=== PATIENT | male | born 1940 | race Caucasian/White ===

== ENCOUNTER 2019-09-02 07:25 | Outpatient (CLI) | payer MEDICARE, SELFPAY ==
--- NOTE | ~2019-09-02 | US_ITS ---
US venous doppler UE LT DATE: 09/02/2019 07:58 INDICATION: Left arm swelling. History of metastatic lung cancer. TECHNIQUE: Real-time imaging and color flow imaging and Doppler analysis of the veins of the left upp er extremity COMPARISON: None FINDINGS: Flow is demonstrated in the left internal jugular and subclavian veins. There is extensive thrombus within the left basilic vein with incomplete compression of this vessel. The left brachial, cephalic, radial and ulnar veins are patent. IMPRESSION: Deep venous thrombosis of left basilic vein Dr. Woodruff telephoned the report on 09/02/2019 at 0809 hours to [place] Reviewed, dictated and finalized at Location A. Reviewed, dictated and finalized at location A. COUPLER
== END 2019-09-02 07:26 | disposition home or self-care (01) ==
PROVIDERS: PCP Internal Medicine; Visit Provider Internal Medicine
DX: M79.89 Other specified soft tissue disorders (principal); C34.90 Malignant neoplasm of unspecified part of unspecified bronchus or lung
CPT/HCPCS: 93971

== ENCOUNTER 2019-09-04 08:40 | Outpatient (CLI) | payer MEDICARE, SELFPAY ==
[2019-09-04 08:54] LABS: Basophils Absolute Auto 0.05 K/mm3 (0.00-0.10); Basophils Percent Auto 0.7 % (0.0-1.0); Eosinophils Absolute Auto 0.34 K/mm3 (0.02-0.50); Eosinophils Percent Auto 5.1 % (1.0-6.0); Hemoglobin 7.5 g/dL (12.4-15.3); Immature Granulocyte Absolute 0.04 K/mm3 (0.00-0.00); Immature Granulocyte Percent A 0.6 % (0.0-0.0); Lymphocytes Percent Auto 13.5 % (18.0-42.0); Mean Corpuscular Volume 86.8 fL (78.0-102.0); Mean Platelet Volume 8.7 fl (8.7-11.0); Monocytes Absolute Auto 0.64 K/mm3 (0.10-0.90); Monocytes Percent Auto 9.6 % (2.0-11.0); Neutrophils Absolute Auto 4.7 K/mm3 (1.7-7.2); Neutrophils Percent Auto 70.5 % (50.0-70.0); Platelet Count Result 306 K/mm3 (150-420); Red Blood Count 2.88 M/mm3 (4.70-6.10); White Blood Count 6.7 K/mm3 (4.8-10.8)
[2019-09-04 09:57] LABS: Alanine Aminotransferase 12 U/L (16-63); Albumin Level 3.1 g/dL (3.4-5.0); Alkaline Phosphatase 87 U/L (46-116); Anion Gap 14.9 mmol/L (7-16); Aspartate Amino Transferase 12 U/L (15-37); Bilirubin,Total 0.3 mg/dL (0.00-1.00); Blood Urea Nitrogen 45 mg/dL (7-18); Calcium 9.2 mg/dL (8.5-10.1); Carbon Dioxide 26 mmol/L (21-32); Chloride 106 mmol/L (98-108); Estimated Glomerular Filt Rate 22; Glucose 94 mg/dL (70-99); Osmolality Calculated 305 mOsm/kg (285-295); Potassium 4.9 mmol/L (3.5-5.1); Sodium 142 mmol/L (136-145); Total Protein 6.3 g/dL (6.4-8.2)
== END 2019-09-04 08:41 | disposition home or self-care (01) ==
LOC: CHSLAB 08:45
PROVIDERS: PCP Internal Medicine; Visit Provider Internal Medicine
DX: N18.9 Chronic kidney disease, unspecified (principal); I80.9 Phlebitis and thrombophlebitis of unspecified site
CPT/HCPCS: 36415; 80053; 85025

== ENCOUNTER 2019-09-11 12:11 | Outpatient (CLI) | payer MEDICARE, SELFPAY ==
[2019-09-11 13:07] LABS: Basophils Absolute Auto 0.04 K/mm3 (0.00-0.10); Basophils Percent Auto 0.6 % (0.0-1.0); Eosinophils Absolute Auto 0.36 K/mm3 (0.02-0.50); Eosinophils Percent Auto 5.1 % (1.0-6.0); Hematocrit 24.9 % (37.0-46.0); Hemoglobin 7.4 g/dL (12.4-15.3); Immature Granulocyte Absolute 0.07 K/mm3 (0.00-0.00); Lymphocytes Absolute Auto 0.86 K/mm3 (1.10-4.50); Lymphocytes Percent Auto 12.2 % (18.0-42.0); Mean Corpuscular HGB Conc 29.7 g/dL (32.0-36.0); Mean Corpuscular Hemoglobin 25.4 pg (27.0-31.0); Mean Corpuscular Volume 85.6 fL (78.0-102.0); Monocytes Absolute Auto 0.75 K/mm3 (0.10-0.90); Monocytes Percent Auto 10.7 % (2.0-11.0); Neutrophils Percent Auto 70.4 % (50.0-70.0); Platelet Count Result 341 K/mm3 (150-420); Red Blood Count 2.91 M/mm3 (4.70-6.10); Red Cell Distribution Width 14.5 % (11.6-14.4)
[2019-09-11 13:42] LABS: Alanine Aminotransferase 15 U/L (16-63); Albumin Level 3.1 g/dL (3.4-5.0); Alkaline Phosphatase 87 U/L (46-116); Anion Gap 15.4 mmol/L (7-16); Aspartate Amino Transferase 13 U/L (15-37); Bilirubin,Total 0.2 mg/dL (0.00-1.00); Blood Urea Nitrogen 39 mg/dL (7-18); Calcium 8.8 mg/dL (8.5-10.1); Carbon Dioxide 28 mmol/L (21-32); Chloride 105 mmol/L (98-108); Estimated Glomerular Filt Rate 26; Glucose 82 mg/dL (70-99); Osmolality Calculated 306 mOsm/kg (285-295); Potassium 4.4 mmol/L (3.5-5.1); Sodium 144 mmol/L (136-145); Total Protein 6.4 g/dL (6.4-8.2)
== END 2019-09-11 12:12 | disposition home or self-care (01) ==
LOC: CHSLAB 12:13
PROVIDERS: PCP Internal Medicine; Visit Provider Internal Medicine
DX: N18.9 Chronic kidney disease, unspecified (principal); I80.9 Phlebitis and thrombophlebitis of unspecified site
CPT/HCPCS: 36415; 80053; 85025

== ENCOUNTER 2020-03-21 09:12 | Outpatient (CLI) | payer MEDICARE, SELFPAY ==
[2020-03-21 09:20] VITALS: PULSE 72; O2SAT 96
[2020-03-21 09:41] VITALS: PULSE 91; O2SAT 87
[2020-03-21 09:43] VITALS: PULSE 104; O2SAT 98
--- NOTE | 2020-03-21 09:46 | HOMEO2EVAL ---
Home Oxygen Evaluation RC: Home Oxygen (O2) Evaluation Start: 03/21/20 09:39 Freq: Status: Active Protocol: RPE Activity Type Activity Date Activity User E-Sign Co-Sign Detail Recorded Client Recorded Date Recorded By Document 03/21/20 09:20 MAGALI [id number] 03/21/20 09:46 SJB Document 03/21/20 09:41 SJB [id number] 03/21/20 09:46 SJB Document 03/21/20 09:43 SJB [id number] 03/21/20 09:46 SJB 03/21/20 03/21/20 03/21/20 09:20 09:41 09:43 Home O2 Evaluation Test Phase Resting Exercise Exercise Oxygen Delivery Room Air Nasal Cannula Oxygen Flow Rate (L/min) 2 Pulse Oximetry (90-100 %) 96 87 L 98 Pulse Rate (60-100 beats/min) 72 91 104 H Activity Tolerance Fair Fair Rating of Perceived Dyspnea (PD) +2 Mild, Some +3 Moderate Difficulty, Difficulty, But Noticeable to Can Continue the Observer Ambulation Distance (feet) 265 530 Home Oxygen Evaluation Comments WAKED APPROX PT WALKED THE 265 FT PUSHING REMAINDER OF W/C O R/A. THE 530 FT ON 2 SP02 DROPPED TO LPM O2 87%, 2 LPM O2 TOLERATING WELL WAS STARTED AT WITH SP02S THIS TIME. REST FROM 96-98%. TIME WAS APPROX [address] ENCOURAGED. Treatment Charges O2 Evaluation
== END 2020-03-21 09:13 | disposition home or self-care (01) ==
LOC: CHSCARD 09:14
PROVIDERS: PCP Internal Medicine; Visit Provider Internal Medicine
DX: J44.9 Chronic obstructive pulmonary disease, unspecified (principal); Z99.81 Dependence on supplemental oxygen
CPT/HCPCS: 94618

== ENCOUNTER 2020-06-13 13:41 | Outpatient (CLI) | payer MEDICARE, SELFPAY ==
--- NOTE | ~2020-06-13 | XR_ITS ---
EXAMINATION: XR chest 2V DATE: 06/13/2020 14:02 INDICATION: Dyspnea. Chronic obstructive pulmonary disease. TECHNIQUE: Frontal and lateral views of the chest were obtained on 3 radiographs. COMPARISON: Chest single view 04/20/2019, chest CT 04/13/2019 FINDINGS: The lungs are hyperexpanded with lucencies, consistent with emphysema. There are nodules in left upper lobe. No pleural effusion or pneumothorax. The heart size is normal. IMPRESSION: 1. Nodules in left upper lobe, consistent with infection versus metastatic disease. 2. Emphysema. Reviewed, dictated and finalized at location B. ER MAKING LABORER IMPRESSION: 1. Nodules in left upper lobe, consistent with infection versus metastatic dise ase. 2. Emphysema.
== END 2020-06-13 13:42 | disposition home or self-care (01) ==
LOC: CHSIMG 13:44
PROVIDERS: PCP Internal Medicine; Visit Provider Internal Medicine Pulmonary Disease
DX: J44.9 Chronic obstructive pulmonary disease, unspecified (principal); R06.00 Dyspnea, unspecified
CPT/HCPCS: 71046

== ENCOUNTER 2020-06-25 03:57 | Observation (INO) | payer MEDICARE, SELFPAY ==
[2020-06-25] VITALS (22 sets, daily range): BP systolic 123–165; BP diastolic 50–88; PULSE 76–100; RESP 18–28; TEMP 36.6–37.1; O2SAT 92–99; BMI 28.8; BMI 28.7
--- NOTE | ~2020-06-25 | XR_ITS ---
EXAMINATION: XR chest 1V portable EXAM DATE: 06/25/2020 04:31 INDICATION: Dyspnea. TECHNIQUE: Portable AP frontal chest x-ray was obtained. Comparison is made to prior examination from 06/13/2020. FINDINGS: Again there is reticular nodular left upper lobe airspace disease with some regions of calc ification. Could be postinfectious scarring. Underlying malignancy not excludable. Right lung is cali r. No pneumothorax or pleural effusion. Cardiomediastinal silhouette is normal. There are no osseous abnormalities identified. IMPRESSION: 1. Left upper lobe opacities most likely postinfectious. Can't exclude underlying malignancy. 2. No acute findings. Reviewed, dictated and finalized at location A. STIGATION OFFICER IMPRESSION: 1. Left upper lobe opacities most likely postinfectious. Can't exclude underly ing malignancy. 2. No acute findings.
--- NOTE | 2020-06-25 04:10 | ECG_ITS ---
Measurements Intervals [place] Rate: 93 P: 73 DC: 172 QRS: 78 QRSD: 94 T: 68 QT: 370 QTc: 461 Interpretive Statements SINUS RHYTHM VENTRICULAR COUPLET AND VENTRICULAR PREMATURE COMPLEX BASELINE ARTIFACT- I, III, AVR, AVL, AVF, V1-V6 BORDERLINE ECG Electronically Signed On 06-26-2020 7:31:19 COKE WORKER by Jerome Leahy D.O.
[2020-06-25] MEDS: SODIUM CHLORIDE 0.9% 3 ML NEB FOR INHALATION (04:11)
[2020-06-25] MEDS: IPRATROPIUM 0.5 MG/ALBUTEROL SULFATE 2.5 MG AMPUL.NEB 3 ML (04:11)
[2020-06-25 04:54] LABS: Basophils Absolute Auto 0.06 K/mm3 (0.00-0.10); Basophils Percent Auto 0.5 % (0.0-1.0); Eosinophils Absolute Auto 0.29 K/mm3 (0.02-0.50); Eosinophils Percent Auto 2.6 % (1.0-6.0); Hematocrit 33.2 % (37.0-46.0); Hemoglobin 9.8 g/dL (12.4-15.3); Immature Granulocyte Absolute 0.26 K/mm3 (0.00-0.00); Immature Granulocyte Percent A 2.3 % (0.0-0.0); Lymphocytes Absolute Auto 1.54 K/mm3 (1.10-4.50); Lymphocytes Percent Auto 13.9 % (18.0-42.0); Mean Corpuscular HGB Conc 29.5 g/dL (32.0-36.0); Mean Corpuscular Hemoglobin 27.9 pg (27.0-31.0); Mean Corpuscular Volume 94.6 fL (78.0-102.0); Mean Platelet Volume 10.6 fl (8.7-11.0); Monocytes Absolute Auto 0.81 K/mm3 (0.10-0.90); Monocytes Percent Auto 7.3 % (2.0-11.0); Neutrophils Absolute Auto 8.1 K/mm3 (1.7-7.2); Neutrophils Percent Auto 73.4 % (50.0-70.0); Platelet Count Result 232 K/mm3 (150-420); Red Blood Count 3.51 M/mm3 (4.70-6.10); Red Cell Distribution Width 14.6 % (11.6-14.4); White Blood Count 11.1 K/mm3 (4.8-10.8)
[2020-06-25 05:08] LABS: Base Excess ABG -2.2 mmol/L (0-2); HCO3 ABG 26.2 mmol/L (23-29); Modified Allen's Test Pass; Oxygen Content ABG 20.5 %vol (16.0-22.0); Oxygen Saturation ABG 92.6 % (95-97); Oxyhemoglobin 91.6 % (94-100); PCO2 ABG 59.7 mmHg (35-45); PO2 ABG 67.2 mmHg (75-85); Site Drawn LEFT RADIAL; Total Hemoglobin 15.9 g/dL; pH ABG 7.26 (7.35-7.45)
[2020-06-25 05:09] LABS: D Dimer 0.29 mg/L (0.19-0.50); Device NASAL CANNULA; Partial Thromboplastin Time 30.1 SEC (22.3-31.6); Prothrombin Time 10.2 Seconds (9.64-11.0)
[2020-06-25 05:10] LABS: Alanine Aminotransferase 24 U/L (16-63); Albumin Level 3.4 g/dL (3.4-5.0); Alkaline Phosphatase 84 U/L (46-116); Anion Gap 10 mmol/L (8-16); Aspartate Amino Transferase 13 U/L (15-37); Bilirubin,Total 0.2 mg/dL (0.00-1.00); Blood Urea Nitrogen 40 mg/dL (7-18); Calcium 8.4 mg/dL (8.5-10.1); Carbon Dioxide 25 mmol/L (21-32); Chloride 111 mmol/L (98-108); Estimated CRCL calculation 28 ml/min; Estimated Glomerular Filt Rate 29; Glucose 112 mg/dL (70-99); Magnesium 2.3 mg/dL (1.8-2.4); Osmolality Calculated 312 mOsm/kg (285-295); Potassium 4.2 mmol/L (3.5-5.1); Sodium 146 mmol/L (136-145); Total Protein 6.5 g/dL (6.4-8.2); Troponin I < 0.02 ng/mL (0.00-0.056)
[2020-06-25 05:11] LABS: Magnesium 2.3 mg/dL (1.8-2.4)
[2020-06-25 05:12] LABS: Lactic Acid Reflex 0.8 mmol/L (0.4-2.0)
[2020-06-25 05:13] LABS: Influenza Control Valid (Valid); SARS-CoV-2 Ag Negative (Negative)
[2020-06-25 05:15] LABS: BNP 33.3 pg/mL (0-100)
--- NOTE | 2020-06-25 05:51 | ED.SOB ---
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 Has not had a left upper extremity DVT currently on Eliquis. Patient developed increasing shortness of breath overnight with audible wheezing with no fever chills no chest pain denied any abdominal pain no dysuria no diarrhea constipation. MD elicited complaint: shortness of breath Pertinent past history: COPD Onset (ago): hour(s) Context: anxiety Timing: constant Severity: moderate Relieving factors: oxygen Known history of: COPD Associated symptoms: wheezing Treatment prior to arrival: oxygen and other ( Steroids) Related Data Home Medications Medication Instructions Recorded Confirmed apixaban [Eliquis] 5 mg PO DAILY 06/25/20 06/25/20 budesonide [Pulmicort] See Rx Instructions .ROUTE .COMPLEX 06/25/20 06/25/20 [id number] See Rx Instructions .ROUTE .COMPLEX 06/25/20 06/25/20 [Trelegy Ellipta] furosemide [Lasix] See Rx Instructions .ROUTE .COMPLEX 06/25/20 06/25/20 lisinopril [Zestril] See Rx Instructions .ROUTE .COMPLEX 06/25/20 06/25/20 prednisone See Rx Instructions .ROUTE .COMPLEX 06/25/20 06/25/20 Allergies Allergy/AdvReac Type Severity Reaction Status Date / Time No Known Allergies Allergy Unverified 12/17/19 07:29 Review of Systems Review of Systems: All systems reviewed & are unremarkable except as noted in HPI and below PMFSH Past Medical History Medical History COPD (chronic obstructive pulmonary disease) HTN (hypertension) Social History Social History Gender identity (if verbalized by the patient): Male Exam Const: General: no acute distress and alert Orientation/consciousness: patient oriented x3 HENMT: Head: normal to inspection Eyes: Conjunctivae: conjunctivae normal Pupils: Equal, round and reactive pupils present Neck: Neck: normal visual inspection Chest: Chest palpation & inspection: normal inspection of the chest and abnormal inspection of the chest Resp: Effort & Inspection: tachypneic Auscultation: wheezes and diminished lung sounds Cardio: Rate: regular rate Rhythm: regular rhythm GI: GI Palp: Yes Soft to palpation Auscultation: normal bowel sounds Other: right lower abdomen with an ostomy back Urinary Catheter: Urinary Catheter: patent and draining Back/Spine/Pelvis: Back: no CVA tenderness Skin: General skin exam: normal color Rashes: no rashes Neuro: General: patient oriented x3, moves all extremities, no meningeal signs and no focal motor deficits Extrem: General: edema Psych: Mental Status: mental status grossly normal Course Course Emergency Course: reassess of patient had improvement with some nebulizer treatment and had received Solu-Medrol during EMS transfer. Spoke to patient and son about admission for COPD exacerbation. Vital Signs Vital signs: Vital Signs Pulse Rate 99 06/25/20 03:59 Respiratory Rate 22 H 06/25/20 03:59 Pulse Oximetry 96 06/25/20 03:59 Temperature 36.8 C 06/25/20 04:09 Pulse Rate 91 06/25/20 05:13 Respiratory Rate 21 H 06/25/20 05:13 Blood Pressure 136/70 06/25/20 05:13 Pulse Oximetry 92 06/25/20 05:13 MDM - SOB/Dyspnea Lab Data Result diagrams: 06/25/20 04:47 06/25/20 04:47 Labs: Lab Results 06/25/20 06/25/20 06/25/20 Range/Units 04:47 04:47 04:47 WBC 11.1 H (4.8-10.8) K/mm3 RBC 3.51 L (4.70-6.10) M/mm3 Hgb 9.8 L (12.4-15.3) g/dL Hct 33.2 L (37.0-46.0) % MC
--- NOTE | 2020-06-25 06:14 | PM.IMHP ---
H&P: HPI History of Present Illness Date/Time: 06/25/20 06:14 Chief complaint: Shortness of Breath Narrative: Merrill Hill is a 79 year old male presents with some dyspnea and audible wheezing has a history of COPD and is on home O2 at2L. Presents the emergency department via EMS after he called having increased shortness of breath with no fever chills, is no chest pain, no cough does have audible wheezing and history of COPD the patient denies a smoking but has apparently quit smoking approximately 10 years ago according to patient. Patient has a history of COPD, hypertension, has a history of bladder cancer with surgery and ostomy bag the right lower abdomen. Patient also had a left upper extremity DVT and is currently on Eliquis. Patient denies fever or chills currently afebrile, with no chest pain. The patient while in the emergency department received nebulizer treatment and IV steroids and is currently on 3L of oxygen satting 92% and currently resting comfortably. Review of Systems Review of Systems: All systems reviewed & are unremarkable except as noted in HPI and below PMFSH Past Medical History Medical History COPD (chronic obstructive pulmonary disease) HTN (hypertension) Social History Social History Gender identity (if verbalized by the patient): Male Meds Home Medications and Allergies Home Medications Medication Instructions Recorded Confirmed Type apixaban [Eliquis] 5 mg PO DAILY 06/25/20 06/25/20 History budesonide [Pulmicort] See Rx Instructions .ROUTE .COMPLEX 06/25/20 06/25/20 History [id number] See Rx Instructions .ROUTE .COMPLEX 06/25/20 06/25/20 History [Trelegy Ellipta] furosemide [Lasix] See Rx Instructions .ROUTE .COMPLEX 06/25/20 06/25/20 History lisinopril [Zestril] See Rx Instructions .ROUTE .COMPLEX 06/25/20 06/25/20 History prednisone See Rx Instructions .ROUTE .COMPLEX 06/25/20 06/25/20 History Allergies Allergy/AdvReac Type Severity Reaction Status Date / Time No Known Allergies Allergy Unverified 12/17/19 07:29 Vital Signs Vital Signs - 24 hr 06/25/20 03:59 06/25/20 04:09 06/25/20 04:12 Temperature 36.8 C Pulse Rate 99 96 92 Respiratory Rate 22 H 28 H 22 H Blood Pressure 151/88 H Pulse Oximetry 96 94 95 06/25/20 04:49 06/25/20 05:13 06/25/20 06:10 Temperature 37.1 C Pulse Rate 92 91 95 Respiratory Rate 22 H 21 H 20 Blood Pressure 165/87 H 136/70 152/78 H Pulse Oximetry 92 92 95 Exam Const: General: cooperative, comfortable, well developed, alert and awake Orientation/consciousness: oriented to person Limitations: no limitations HENMT: Head: normal to inspection Face and sinus: normal facial exam Eyes: General: appearance normal, both eyes and all related structures Eyelids: eyelids normal Conjunctivae: conjunctivae normal Sclera: sclerae normal Neck: Neck: normal visual inspection, full ROM, no lymphadenopathy and no meningeal signs Chest: Chest palpation & inspection: normal inspection of the chest and normal palpation of entire chest wall Resp: Effort & Inspection: normal respiratory effort, able to speak in complete sentences and decreased respiratory effort Cardio: Jugular venous distension: no JVD Palpation: normal PMI Rate: regular rate Rhythm: regular rhythm Back/Spine/Pelvis: Cervical Spine: normal cervical lordosis and cervical ROM normal Thoracic/Lumbar Spine: thoracic and lumbar spine normal to inspection Skin: General skin exam: normal color and no rashes or lesions noted Neuro: General: oriented to person, oriented to place, oriented to time, patient oriented x3 and moves all extremities Extrem: General: full ROM, capillary refill normal and edema Psych: Appearance: grossly normal and well kempt Mental Status: mental status grossly normal H&P: Results Labs Labs: Short CBC
[2020-06-25] MEDS: ALBUTEROL SULFATE NEB 1.25 MG/3 ML INH INHALATION (06:55)
--- NOTE | 2020-06-25 07:16 | ADMGEN ---
This patient, Merrill Hill, was admitted to 2nd Floor Room 208-2. Patient oriented to hospital policies and general routines including ID bracelet, bed and alarms, visiting hours, pain management, procedures, bathroom and other care routines, personal items, smoking policy, room service/diet, and visiting hours. Information on how to activate the Rapid Response Team has been discussed. Patient are encouraged to report perceived risks to care and to ask questions if they do not understand what they are told or what they should do. Patient emptied his urostomy into barrera catheter while sitting on ER stretcher. 200 clear yellow.
[2020-06-25] MEDS: SODIUM CHLORIDE 0.9% IV 1,000 ML 100 ML IV CONT ×2 (08:26→17:37)
[2020-06-25] MEDS: APIXABAN 2.5 MG TABLET 5 MG PO (08:27)
[2020-06-25] MEDS: methylPREDNISolone SOD SUCC 40 MG VIAL IV PUSH ×4 (08:27→23:33)
[2020-06-25] MEDS: FUROSEMIDE 40 MG TABLET PO (08:45)
[2020-06-25] MEDS: lisinopriL 5 MG TABLET PO (08:45)
[2020-06-25] MEDS: IPRATROPIUM 0.5 MG/ALBUTEROL SULFATE 2.5 MG AMPUL.NEB 3 ML INHALATION ×3 (11:55→23:34)
[2020-06-26] VITALS (7 sets, daily range): BP systolic 136; BP diastolic 51; PULSE 65–94; RESP 20; TEMP 36.6; O2SAT 94–99
[2020-06-26] MEDS: SODIUM CHLORIDE 0.9% IV 1,000 ML 100 ML IV CONT (03:10)
[2020-06-26] MEDS: IPRATROPIUM 0.5 MG/ALBUTEROL SULFATE 2.5 MG AMPUL.NEB 3 ML INHALATION ×2 (05:34→12:22)
[2020-06-26] MEDS: methylPREDNISolone SOD SUCC 40 MG VIAL IV PUSH (05:53)
[2020-06-26 06:18] LABS: Basophils Absolute Auto 0.01 K/mm3 (0.00-0.10); Basophils Percent Auto 0.1 % (0.0-1.0); Hematocrit 28.9 % (37.0-46.0); Hemoglobin 8.7 g/dL (12.4-15.3); Immature Granulocyte Absolute 0.17 K/mm3 (0.00-0.00); Immature Granulocyte Percent A 1.5 % (0.0-0.0); Lymphocytes Percent Auto 3.6 % (18.0-42.0); Mean Corpuscular HGB Conc 30.1 g/dL (32.0-36.0); Mean Corpuscular Hemoglobin 28.1 pg (27.0-31.0); Mean Corpuscular Volume 93.2 fL (78.0-102.0); Mean Platelet Volume 10.2 fl (8.7-11.0); Monocytes Absolute Auto 0.47 K/mm3 (0.10-0.90); Monocytes Percent Auto 4.2 % (2.0-11.0); Neutrophils Absolute Auto 10.1 K/mm3 (1.7-7.2); Neutrophils Percent Auto 90.6 % (50.0-70.0); Platelet Count Result 202 K/mm3 (150-420); Red Cell Distribution Width 14.6 % (11.6-14.4); White Blood Count 11.1 K/mm3 (4.8-10.8)
[2020-06-26 06:32] LABS: Alanine Aminotransferase 19 U/L (16-63); Alkaline Phosphatase 69 U/L (46-116); Anion Gap 7 mmol/L (8-16); Aspartate Amino Transferase 11 U/L (15-37); Bilirubin,Total 0.1 mg/dL (0.00-1.00); Blood Urea Nitrogen 46 mg/dL (7-18); Calcium 7.9 mg/dL (8.5-10.1); Carbon Dioxide 26 mmol/L (21-32); Chloride 110 mmol/L (98-108); Estimated CRCL calculation 28 ml/min; Estimated Glomerular Filt Rate 29; Glucose 146 mg/dL (70-99); Osmolality Calculated 310 mOsm/kg (285-295); Potassium 4.9 mmol/L (3.5-5.1); Sodium 143 mmol/L (136-145); Total Protein 5.9 g/dL (6.4-8.2)
[2020-06-26 06:39] LABS: BNP 92.7 pg/mL (0-100)
--- NOTE | 2020-06-26 08:24 | PM.IMHP ---
H&P: HPI History of Present Illness Date/Time: 06/26/20 08:24 Chief complaint: COPD EXACERBATION Narrative: Merrill Hill is a 79 year old male [facility] Past Medical History Medical History (Updated 06/25/20 @ 06:19 by Ermias Martines MD) Acute exacerbation of chronic obstructive airways disease COPD (chronic obstructive pulmonary disease) H/O deep venous thrombosis HTN (hypertension) Social History Social History Smoking status: Former smoker Tobacco type: cigarettes Second hand tobacco smoke exposure: No Alcohol intake: never Substance use: never Substance use type: does not use Gender identity (if verbalized by the patient): Male Sexual Orientation (if Verbalized by the Patient): Straight or Heterosexual Spiritual care concerns: No Meds Home Medications and Allergies Home Medications Medication Instructions Recorded Confirmed Type apixaban [Eliquis] 5 mg PO DAILY 06/25/20 06/25/20 History budesonide [Pulmicort] See Rx Instructions .ROUTE .COMPLEX 06/25/20 06/25/20 History [id number] See Rx Instructions .ROUTE .COMPLEX 06/25/20 06/25/20 History [Trelegy Ellipta] furosemide [Lasix] See Rx Instructions .ROUTE .COMPLEX 06/25/20 06/25/20 History lisinopril [Zestril] See Rx Instructions .ROUTE .COMPLEX 06/25/20 06/25/20 History prednisone See Rx Instructions .ROUTE .COMPLEX 06/25/20 06/25/20 History Allergies Allergy/AdvReac Type Severity Reaction Status Date / Time No Known Allergies Allergy Unverified 12/17/19 07:29 Vital Signs Vital Signs - 24 hr 06/25/20 11:59 06/25/20 12:00 06/25/20 12:12 Temperature Pulse Rate 87 88 88 Respiratory Rate 20 20 Blood Pressure Pulse Oximetry 99 98 06/25/20 15:30 06/25/20 15:32 06/25/20 15:35 Temperature 98.1 F Pulse Rate 88 88 Respiratory Rate 18 Blood Pressure 132/70 Pulse Oximetry 97 98 06/25/20 17:58 06/25/20 20:00 06/25/20 23:30 Temperature Pulse Rate 80 84 76 Respiratory Rate 18 20 Blood Pressure Pulse Oximetry 97 95 06/25/20 23:47 06/25/20 23:50 06/26/20 03:45 Temperature 97.8 F Pulse Rate 76 82 80 Respiratory Rate 20 20 Blood Pressure 123/50 L Pulse Oximetry 95 95 06/26/20 05:35 06/26/20 05:45 Temperature Pulse Rate 66 65 Respiratory Rate 20 20 Blood Pressure Pulse Oximetry 94 96 H&P: Results Labs Labs: Short CBC 06/26/20 Range/Units 06:12 WBC 11.1 H (4.8-10.8) K/mm3 Hgb 8.7 L (12.4-15.3) g/dL Hct 28.9 L (37.0-46.0) % Plt Count 202 (150-420) K/mm3 BMP 06/26/20 06:12 Sodium 143 Potassium 4.9 Chloride 110 H Carbon Dioxide 26 BUN 46 H Creatinine 2.18 H Glucose 146 H Calcium 7.9 L Liver Function 06/26/20 Range/Units 06:12 Total Bilirubin 0.1 (0.00-1.00) mg/dL AST 11 L (15-37) U/L ALT 19 (16-63) U/L Alkaline Phosphatase 69 (46-116) U/L Albumin 3.0 L (3.4-5.0) g/dL
[2020-06-26] MEDS: lisinopriL 5 MG TABLET PO (09:08)
[2020-06-26] MEDS: FUROSEMIDE 40 MG TABLET PO (09:09)
[2020-06-26] MEDS: APIXABAN 2.5 MG TABLET 5 MG PO (09:09)
--- NOTE | 2020-06-26 11:00 | PM.SD ---
Same Day Admit/Disch: HPI History of Present Illness Chief complaint: COPD EXACERBATION <JEFF Raymundo - Last Filed: 06/26/20 11:25> Narrative: Merrill Hill is a 79 year old male who came into the hospital via EMS due to increased shortness of breath. Patient states he has a history of lung cancer and is receiving chemotherapy every 3 weeks. States he is on home oxygen and has nebulizers that he has been using. He admits that he has recently had increased cravings for cigarettes and would like Chantix on discharge. Patient denies fevers, chills, chest pain, coughing. This morning patient states he feels that he is back to his normal baseline for when he is at home. He informed me that he does have a steroid taper pack at home that he did not use for some reason. Will be sending him home with Z-Andi and a prednisone taper pack. Patient will need to have close follow-up with his primary care provider and/or his oncologist. Will also send a script for Chantix. <JEFF Raymundo - Last Filed: 06/26/20 11:25> [facility] Past Medical History Medical History: Medical History Acute exacerbation of chronic obstructive airways disease COPD (chronic obstructive pulmonary disease) H/O deep venous thrombosis HTN (hypertension) <JEFF Raymundo - Last Filed: 06/26/20 11:25> Social History Social History: Social History Smoking status: Former smoker Tobacco type: cigarettes Second hand tobacco smoke exposure: No Alcohol intake: never Substance use: never Substance use type: does not use Gender identity (if verbalized by the patient): Male Sexual Orientation (if Verbalized by the Patient): Straight or Heterosexual Spiritual care concerns: No <JEFF Raymundo - Last Filed: 06/26/20 11:25> Same Day Admit/Disch: Med Pre-admit Medications Home Medications: Home Medications Medication Instructions Recorded Confirmed Type Eliquis 5 mg PO DAILY 06/25/20 06/25/20 History Trelegy Ellipta See Rx Instructions .ROUTE .COMPLEX 06/25/20 06/25/20 History budesonide [Pulmicort] See Rx Instructions .ROUTE .COMPLEX 06/25/20 06/25/20 History furosemide [Lasix] See Rx Instructions .ROUTE .COMPLEX 06/25/20 06/25/20 History lisinopril [Zestril] See Rx Instructions .ROUTE .COMPLEX 06/25/20 06/25/20 History prednisone See Rx Instructions .ROUTE .COMPLEX 06/25/20 06/25/20 History azithromycin 250 mg PO DAILY 5 Days #5 tablet 06/26/20 Rx prednisone See Rx Instructions .ROUTE 06/26/20 Rx .COMPLEX #48 ea varenicline [Chantix Starting See Rx Instructions .ROUTE 06/26/20 Rx Month Box] .COMPLEX #53 ea <JEFF Raymundo - Last Filed: 06/26/20 11:25> Exam Const: General: cooperative, comfortable, no acute distress, alert, awake and Physically active <JEFF Raymundo - Last Filed: 06/26/20 11:25> Nutritional Appearance: average body habitus <JEFF Raymundo - Last Filed: 06/26/20 11:25> Resp: Effort & Inspection: labored (Appears a little labored, patient says this is his normal at home) <JEFF Raymundo - Last Filed: 06/26/20 11:25> Auscultation: rhonchi throughout and wheezes (Scattered throughout) <JEFF Raymundo - Last Filed: 06/26/20 11:25> Cardio: Rate: regular rate <JEFF Raymundo - Last Filed: 06/26/20 11:25> Rhythm: regular rhythm <JEFF Raymundo - Last Filed: 06/26/20 11:25> Heart sounds: S1 normal heart sound present and S2 normal heart sound present <JEFF Raymundo - Last Filed: 06/26/20 11:25> Extrem: General: pedal edema bilaterally 4+ <JEFF Raymundo - Last Filed: 06/26/20 11:25> DS: Data Data Completed and Pending Labs on day of discharge: Labs from last 24 hours 06/26/20 06/26/20 06/26/20 06:12 06:12 06:12 WBC 11.1 H RBC 3.10 L Hgb 8.7 L Hct 28.9
--- NOTE | 2020-06-26 13:10 | PC.NURSE ---
Normal saline infusion completed
--- NOTE | 2020-07-03 13:16 | PC.NURSE ---
Invalid phone number for discharge call back.
--- NOTE | 2020-07-20 14:06 | PC.NURSE ---
The 06/25/2020 0827 dose of Ceftriaxone was ended on 06/25/2020 at 0857.
== END 2020-06-26 13:10 | disposition home or self-care (01) ==
LOC: CHSED 06:01 → CHS2ND 08:01
PROVIDERS: Admitting Provider Emergency Medicine; Emergency Provider Emergency Medicine; PCP Internal Medicine; Visit Provider Emergency Medicine
DX: J44.1 Chronic obstructive pulmonary disease with (acute) exacerbation (principal); I82.622 Acute embolism and thrombosis of deep veins of left upper extremity; I10 Essential (primary) hypertension; Z85.51 Personal history of malignant neoplasm of bladder; Z93.6 Other artificial openings of urinary tract status; Z20.828 Contact with and (suspected) exposure to other viral communicable diseases; Z79.01 Long term (current) use of anticoagulants
CPT/HCPCS: 36415; 36600; 71045; 80053; 82805; 83605; 83735; 83880; 84484; 85025; 85380; 85610; 85730; 87040; 87426; 87804; 93005; 94640; 96361; 96365; 96375; 96376; 99285; A9270; G0378; J0696; J2920; J7030

== ENCOUNTER → 2020-10-14 01:44 | Outpatient (CLI) | payer MEDICARE, SELFPAY ==
[2020-10-14 18:54] LABS: SARS-CoV-2 RNA PCR Negative
== END ==
PROVIDERS: PCP Internal Medicine; Visit Provider Internal Medicine Gastroenterology
DX: Z01.812 Encounter for preprocedural laboratory examination (principal); Z20.822 Contact with and (suspected) exposure to COVID-19
CPT/HCPCS: C9803; U0003; U0005

== ENCOUNTER 2020-10-17 01:36 | Day surgery (SDC) | payer MEDICARE, SELFPAY ==
[2020-10-02 13:31] VITALS: BMI 29.9
--- NOTE | 2020-10-06 11:49 | PC.NURSE ---
SPOKE WITH PATIENT AFTER RECEIVING INSTRUCTIONS REGARDING ELIQUIS FROM DR. VALENCIA, PT LAST DOSE OF ELIQUIS TO BE ON 10/15/2020 TILL AFTER PROCEDURE, PT TO DO NEBULIZER TREATMENT AT HOME PRIOR TO LEAVING THE AM OF PROCEDURE. DISCUSSED PREP WITH PATIENT AND INSTRUCTED TO CALL IF ANY QUESTIONS ONCE HE RECEIVES INSTRUCTIONS IN MAIL.
[2020-10-17 10:52] VITALS: BP 151/68; PULSE 82; RESP 17; TEMP 36.8; O2SAT 96; BMI 30.3
--- NOTE | 2020-10-17 11:09 | WPDANESEPPF ---
Anes - Initial Pre Proc Eval Procedure: Operation Date: 10/17/20 11:30 Proposed Procedures p Colonoscopy - Shahid Ferreira MD Date/Time: 10/17/20 11:09 Surgeon: Shahid Ferreira MD Pre Op Diagnosis: abn PET scan Patient Data Age: 80 Gender: M Height: 6 ft Weight: 101.4 kg Last Vital Signs Temp 98.2 F 10/17/20 10:52 Pulse 82 10/17/20 10:52 Resp 17 10/17/20 10:52 BP 151/68 H 10/17/20 10:52 Pulse Ox 96 10/17/20 10:52 Allergies Allergy/AdvReac Type Severity Reaction Status Date / Time No Known Allergies Allergy Verified 10/17/20 10:47 Home Medications Medication Instructions Recorded Confirmed Type furosemide [Lasix] See Rx Instructions .ROUTE .COMPLEX 06/25/20 10/13/20 History lisinopril [Zestril] See Rx Instructions .ROUTE .COMPLEX 06/25/20 10/13/20 History cyanocobalamin (vitamin B-12) 1,000 mcg PO DAILY 10/02/20 10/13/20 History [Vitamin B-12] ferrous sulfate 325 mg PO DAILY 10/02/20 10/13/20 History fexofenadine [Bridget] 180 mg PO DAILY 10/02/20 10/13/20 History guaifenesin [Mucinex] 600 mg PO DAILY 10/02/20 10/13/20 History apixaban 5 mg tablet 5 mg PO BID tablet 10/13/20 10/17/20 History arformoterol 15 mcg/2 mL solution 2 ml INHALATION BID 90 Days #360 ml 10/13/20 10/17/20 Rx for nebulization budesonide 0.5 mg/2 mL suspension 0.5 mg INHALATION BID 90 Days #360 10/13/20 10/17/20 Rx for nebulization ml escitalopram oxalate 10 mg tablet 10 mg PO DAILY 10/13/20 10/17/20 History folic acid 800 mcg tablet 0.8 mg PO DAILY 10/13/20 10/17/20 History ipratropium 0.5 mg-albuterol 3 mg 3 ml INHALATION QID PRN #1080 ml 10/13/20 10/17/20 Rx (2.5 mg base)/3 mL nebulization soln ipratropium bromide 21 mcg (0.03 2 spray INTRANASAL BID 10/13/20 10/17/20 History %) nasal spray prednisone 10 mg tablet 10 mg .ROUTE .COMPLEX #90 tablet 10/13/20 10/17/20 Rx Patient hx anesthesia problems: none Family hx anesthesia problems: none PMFSH Past Medical History Medical History Acute exacerbation of chronic obstructive airways disease COPD (chronic obstructive pulmonary disease) H/O deep venous thrombosis HTN (hypertension) Social History Social History Smoking packs per day: 1.5 Smoking cigarettes per day: 30.0 Years smoked: 50 Smoking pack-years: 75.00 Smoking status: Former smoker Tobacco type: cigarettes Second hand tobacco smoke exposure: No Smoking end date: 08/04/10 Alcohol intake: never Substance use: never Substance use type: does not use Living arrangements: with family Gender identity (if verbalized by the patient): Male Spiritual care concerns: No Anes - Eval Final PreProcedure Day of Procedure 10/17/20 11:09 Patient weight: obese Heart: regular rate and rhythm Lungs: clear to auscultation Airway: Mallampati scale class III Neurological: alert and oriented Last oral intake: >/= 8 hours ASA classification: IV Emergent: no Anesthetic plan: proceed Anesthesia type and monitoring: general GIVS and standard monitoring Informed Consent: The patient's anesthetic plan and its attendant risks and benefits were discussed with the patient/family/POA. Questions were solicited and answers provided to the satisfaction of the patient/family/POA.
[2020-10-17] MEDS: LACTATED RINGERS 1,000 ML 150 ML IV CONT (11:14)
--- NOTE | 2020-10-17 12:09 | PM.HPGS ---
History of Present Illness History of Present Illness Consent: Risks, benefits, and alternatives have been discussed and questions answered. Patient agrees to proceed with procedure. Chief complaint: abn PET scan Narrative: Merrill Hill is a 80 year old male with lung and bladder cancer, recent PET scan showed abnormal signal in sigmoid (never had a colonoscopy) Review of Systems Constitutional: Constitutional: Denies headache(s) and Denies weakness Eyes: Eyes: Denies blurry vision ENT: Reports Normal hearing present, Denies headache(s) and Denies neck pain Cardiovascular: Cardiovascular: Denies chest pain and Denies dyspnea Respiratory: Respiratory: Reports cough and Reports dyspnea on exertion Comments: chronic sob Gastrointestinal: Gastrointestinal: Reports no additional gastrointestinal complaints Genitourinary: Genitourinary: Denies dysuria Musculoskeletal: Musculoskeletal: Denies neck pain Integumentary/Breasts: Skin/Breast: Denies dry skin Neurologic: Reports Normal hearing present, Denies headache(s) and Denies weakness Psychiatric: Psychiatric: Denies anxiety Endocrine: Endocrine: Denies change in body appearance Hematologic/Lymphatic: Hematologic/Lymphatic: Denies easy bleeding Allergic/Immunologic: Allergic/Immunologic: Denies urticaria PMFSH Past Medical History Medical History Acute exacerbation of chronic obstructive airways disease COPD (chronic obstructive pulmonary disease) H/O deep venous thrombosis HTN (hypertension) Social History Social History Smoking packs per day: 1.5 Smoking cigarettes per day: 30.0 Years smoked: 50 Smoking pack-years: 75.00 Smoking status: Former smoker Tobacco type: cigarettes Second hand tobacco smoke exposure: No Smoking end date: 08/04/10 Alcohol intake: never Substance use: never Substance use type: does not use Living arrangements: with family Gender identity (if verbalized by the patient): Male Spiritual care concerns: No Meds Home Medications and Allergies Home Medications Medication Instructions Recorded Confirmed Type furosemide [Lasix] See Rx Instructions .ROUTE .COMPLEX 06/25/20 10/13/20 History lisinopril [Zestril] See Rx Instructions .ROUTE .COMPLEX 06/25/20 10/13/20 History cyanocobalamin (vitamin B-12) 1,000 mcg PO DAILY 10/02/20 10/13/20 History [Vitamin B-12] ferrous sulfate 325 mg PO DAILY 10/02/20 10/13/20 History fexofenadine [Bridget] 180 mg PO DAILY 10/02/20 10/13/20 History guaifenesin [Mucinex] 600 mg PO DAILY 10/02/20 10/13/20 History apixaban 5 mg tablet 5 mg PO BID tablet 10/13/20 10/17/20 History arformoterol 15 mcg/2 mL solution 2 ml INHALATION BID 90 Days #360 ml 10/13/20 10/17/20 Rx for nebulization budesonide 0.5 mg/2 mL suspension 0.5 mg INHALATION BID 90 Days #360 10/13/20 10/17/20 Rx for nebulization ml escitalopram oxalate 10 mg tablet 10 mg PO DAILY 10/13/20 10/17/20 History folic acid 800 mcg tablet 0.8 mg PO DAILY 10/13/20 10/17/20 History ipratropium 0.5 mg-albuterol 3 mg 3 ml INHALATION QID PRN #1080 ml 10/13/20 10/17/20 Rx (2.5 mg base)/3 mL nebulization soln ipratropium bromide 21 mcg (0.03 2 spray INTRANASAL BID 10/13/20 10/17/20 History %) nasal spray prednisone 10 mg tablet 10 mg .ROUTE .COMPLEX #90 tablet 10/13/20 10/17/20 Rx Allergies Allergy/AdvReac Type Severity Reaction Status Date / Time No Known Allergies Allergy Verified 10/17/20 10:47 Vital Signs Vital Signs - 24 hr 10/17/20 10:52 Temperature 98.2 F Pulse Rate 82 Respiratory Rate 17 Blood Pressure 151/68 H Pulse Oximetry 96 Exam Const: General: comfortable and no acute distress HENMT: General nose exam: Normal nares present Eyes: General: appearance normal, both eyes and all related structures Neck: Neck: no JVD Resp: Auscultation: clear to auscultation bi
[2020-10-17 12:56] VITALS: BP 136/81; PULSE 82; RESP 24; O2SAT 99
[2020-10-17 13:06] VITALS: BP 150/78; PULSE 84; RESP 25; O2SAT 100
[2020-10-17 13:16] VITALS: BP 141/80; PULSE 78; RESP 20; O2SAT 99
== END 2020-10-17 13:35 | disposition home or self-care (01) ==
PROVIDERS: PCP Internal Medicine; Visit Provider Internal Medicine Gastroenterology
PROC: 0DJD8ZZ Inspection of Lower Intestinal Tract, Via Natural or Artificial Opening Endoscopic (ICD-10-PCS; CPT 45378; principal; 2020-10-17 11:30)
DX: D12.5 Benign neoplasm of sigmoid colon (principal); D12.3 Benign neoplasm of transverse colon; K63.5 Polyp of colon; K57.30 Diverticulosis of large intestine without perforation or abscess without bleeding; K64.8 Other hemorrhoids; C34.90 Malignant neoplasm of unspecified part of unspecified bronchus or lung; C67.9 Malignant neoplasm of bladder, unspecified; I10 Essential (primary) hypertension; J44.9 Chronic obstructive pulmonary disease, unspecified; Z86.718 Personal history of other venous thrombosis and embolism; Z87.891 Personal history of nicotine dependence; Z79.01 Long term (current) use of anticoagulants; Z79.51 Long term (current) use of inhaled steroids; E66.9 Obesity, unspecified; Z68.30 Body mass index [BMI] 30.0-30.9, adult
CPT/HCPCS: 45380; 45385; 88305; C9803; J2704; J7120; U0003; U0005

== ENCOUNTER 2021-09-16 15:26 | Inpatient (IN) | payer MEDICARE, SELFPAY ==
[2021-09-16] VITALS (8 sets, daily range): BP systolic 112–167; BP diastolic 60–93; PULSE 82–136; RESP 18–40; TEMP 36.5–36.9; O2SAT 95–100; BMI 29.5
--- NOTE | ~2021-09-16 | XR_ITS ---
EXAMINATION: XR chest 1V portable INDICATION: Shortness of breath TECHNIQUE: Portable AP chest at 1558 hours COMPARISON: 06/13/2020 FINDINGS: The lungs are free of acute opacities. There is no pleural effusion or pneumothorax. The ca rdiomediastinal silhouette is normal. IMPRESSION: 1. No acute cardiopulmonary abnormality. Reviewed, dictated and finalized at location F. BL[facility]
--- NOTE | ~2021-09-16 | XR_ITS ---
EXAMINATION: XR chest 1V portable DATE: 09/19/2021 07:16 INDICATION: Congestive heart failure. TECHNIQUE: A single frontal view of the chest was obtained. COMPARISON: Chest single view 09/16/2021, chest CT 04/13/2019 FINDINGS: There is mild atelectasis in the lower lung zones. There is mild scarring in left upper lob e. No pleural effusion or pneumothorax. The heart size is normal. IMPRESSION: 1. Mild atelectasis in the lower lung zones and mild scarring in left upper lobe. Reviewed, dictated and finalized at location A. [facility] IMPRESSION: 1. Mild atelectasis in the lower lung zones and mild scarring in left upper lob e.
--- NOTE | 2021-09-16 15:32 | ED.SOB ---
HPI - SOB/Dyspnea General Chief Complaint: Shortness of Breath/Dyspnea Stated Complaint: sob, leg pain Time Seen by Provider: 09/16/21 15:29 Source: patient, EMS and RN notes reviewed Mode of arrival: EMS Limitations: no limitations History of Present Illness MD elicited complaint: shortness of breath and chest pain ( Chest tightness gone now) Pertinent past history: COPD Onset (ago): hour(s) (2) Timing: improved Severity: similar to previous episodes Exacerbating factors: lying flat and exertion Relieving factors: oxygen Known history of: COPD and DVT Associated symptoms: chest pain and lower extremity pain (right started this AM) Treatment prior to arrival: oxygen Related Data Home oxygen amount: 2 liters Home Medications Medication Instructions Recorded Confirmed furosemide [Lasix] 40 mg PO DAILY 06/25/20 09/16/21 lisinopril [Zestril] 2.5 mg PO DAILY 06/25/20 09/16/21 cyanocobalamin (vitamin B-12) 1,000 mcg PO DAILY 10/02/20 09/16/21 [Vitamin B-12] ferrous sulfate 325 mg PO DAILY 10/02/20 09/16/21 guaifenesin [Mucinex] 600 mg PO DAILY 10/02/20 09/16/21 apixaban 5 mg tablet 5 mg PO BID tablet 10/13/20 09/16/21 escitalopram oxalate 10 mg tablet 10 mg PO DAILY 10/13/20 09/16/21 folic acid 800 mcg tablet 0.8 mg PO DAILY 10/13/20 09/16/21 Vitamin D3 125 mcg PO DAILY 09/16/21 09/16/21 Allergies Allergy/AdvReac Type Severity Reaction Status Date / Time No Known Allergies Allergy Verified 09/16/21 15:52 Review of Systems Review of Systems: All systems reviewed & are unremarkable except as noted in HPI and below Constitutional: Constitutional: Denies chills and Denies fever(s) Respiratory: Respiratory: Reports as per HPI and Reports wheezing Gastrointestinal: Gastrointestinal: Denies nausea and Denies vomiting Neurologic: Denies dizziness and Denies syncope [facility], [facility] Past Medical History Medical History (Updated 09/16/21 @ 20:18 by Rosa Mejia, RN) Abnormal positron emission tomography (PET) of colon Acute exacerbation of chronic obstructive airways disease Chronic respiratory failure COPD (chronic obstructive pulmonary disease) H/O deep venous thrombosis HTN (hypertension) Lung cancer Obesity (BMI 30.0-34.9) Surgical History Surgical History (Updated 09/16/21 @ 20:16 by Rosa Mejia RN) Colostomy present H/O colectomy Social History Social History Smoking packs per day: 1.5 Smoking cigarettes per day: 30.0 Years smoked: 50 Smoking pack-years: 75.00 Smoking status: Former smoker Tobacco type: cigarettes Second hand tobacco smoke exposure: No Smoking end date: 08/04/10 Alcohol intake: never Substance use: never Substance use type: does not use Gender identity (if verbalized by the patient): Male Sexual Orientation (if Verbalized by the Patient): Straight or Heterosexual Spiritual care concerns: No Exam Const: General: alert, acute distress moderate and respiratory and ill appearing chronically Orientation/consciousness: patient oriented x3 HENMT: Head: normal to inspection Ears: external ears normal Eyes: Conjunctivae: conjunctivae normal Pupils: Equal, round and reactive pupils present EOM: EOMs intact bilaterally Neck: Neck: normal visual inspection Resp: Effort & Inspection: labored and tachypneic Auscultation: rhonchi lower bilaterally and wheezes expiratory wheezes (mild) Cardio: Rate: tachycardic Rhythm: regular rhythm GI: GI Palp: Yes Soft to palpation, No Tenderness to palpation present (GI) and Yes Hernia present (large RLQ with colostomy bag in place) Auscultation: normal bowel sounds Back/Spine/Pelvis: Cervical Spine: cervical ROM normal Thoracic/Lumbar Spine: thoraco-lumbar ROM normal Neuro: General: patient oriented x3, moves all extremities and no focal motor deficits Extrem: General: no calf tenderness, edema (brawny) bilateral and other ( chronic bilateral lower extremity er
[2021-09-16 15:49] LABS: Basophils Absolute Auto 0.03 K/mm3 (0.00-0.10); Basophils Percent Auto 0.2 % (0.0-1.0); Eosinophils Absolute Auto 0.01 K/mm3 (0.02-0.50); Eosinophils Percent Auto 0.1 % (1.0-6.0); Hematocrit 32.9 % (37.0-46.0); Hemoglobin 9.8 g/dL (12.4-15.3); Immature Granulocyte Absolute 0.36 K/mm3 (0.00-0.00); Immature Granulocyte Percent A 2.9 % (0.0-0.0); Lymphocytes Absolute Auto 0.51 K/mm3 (1.10-4.50); Lymphocytes Percent Auto 4.1 % (18.0-42.0); Mean Corpuscular HGB Conc 29.8 g/dL (32.0-36.0); Mean Corpuscular Hemoglobin 30.1 pg (27.0-31.0); Mean Corpuscular Volume 100.9 fL (78.0-102.0); Mean Platelet Volume 10.5 fl (8.7-11.0); Monocytes Absolute Auto 0.58 K/mm3 (0.10-0.90); Monocytes Percent Auto 4.6 % (2.0-11.0); Neutrophils Percent Auto 88.1 % (50.0-70.0); Platelet Count Result 241 K/mm3 (150-420); Red Blood Count 3.26 M/mm3 (4.70-6.10); Red Cell Distribution Width 15.3 % (11.6-14.4); White Blood Count 12.5 K/mm3 (4.8-10.8)
[2021-09-16 15:59] LABS: D Dimer 0.32 mg/L (0.19-0.50)
[2021-09-16 16:04] LABS: Lactic Acid Reflex 0.7 mmol/L (0.4-2.0)
[2021-09-16 16:05] LABS: Alanine Aminotransferase 24 U/L (16-63); Albumin Level 3.1 g/dL (3.4-5.0); Alkaline Phosphatase 80 U/L (46-116); Anion Gap 11 mmol/L (8-16); Aspartate Amino Transferase 12 U/L (15-37); Bilirubin,Total 0.3 mg/dL (0.00-1.00); Blood Urea Nitrogen 47 mg/dL (7-18); Calcium 8.3 mg/dL (8.5-10.1); Carbon Dioxide 25 mmol/L (21-32); Chloride 108 mmol/L (98-108); Estimated CRCL calculation 29 ml/min; Estimated Glomerular Filt Rate 27; Glucose 99 mg/dL (70-99); Magnesium 2.3 mg/dL (1.8-2.4); NT Pro B Type Natriuretic Pept 755 pg/mL (0-450); Osmolality Calculated 310 mOsm/kg (285-295); Potassium 4.8 mmol/L (3.5-5.1); Sodium 144 mmol/L (136-145); Total Protein 6.2 g/dL (6.4-8.2)
[2021-09-16 17:32] LABS: Troponin I 24.3 ng/L (0.00-60.4)
[2021-09-16 17:46] LABS: Base Excess ABG -5.2 mmol/L (0-2); HCO3 ABG 20.4 mmol/L (23-29); Oxygen Saturation ABG 95.5 % (95-97); Oxyhemoglobin 94.8 % (94-100); PO2 ABG 85.9 mmHg (75-85); Total Hemoglobin 10.4 g/dL (12.0-18.0); pH ABG 7.33 (7.35-7.45)
[2021-09-16 17:47] LABS: Device NASAL CANNULA; Modified Allen's Test Pass; Site Drawn RIGHT RADIAL
[2021-09-16] MEDS: DOCUSATE SODIUM 100 MG CAPSULE PO (20:00)
[2021-09-16] MEDS: FUROSEMIDE INJ 20 MG/2 ML VIAL 40 MG IV PUSH (20:01)
--- NOTE | 2021-09-16 20:04 | PC.NURSE ---
Patient admitted to room 209 from the ER, is alert and oriented, resting in bed, oriented to call hall and surroundings.
[2021-09-16] MEDS: IPRATROPIUM 0.5 MG/ALBUTEROL SULFATE 2.5 MG AMPUL.NEB 3 ML INHALATION ×2 (20:10→20:12)
[2021-09-16] MEDS: methylPREDNISolone SOD SUCC 125 MG VIAL 80 MG IV PUSH (21:29)
[2021-09-17] VITALS (16 sets, daily range): BP systolic 116–129; BP diastolic 51–85; PULSE 70–101; RESP 18–24; TEMP 36.7–37.1; O2SAT 95–99
[2021-09-17] MEDS: IPRATROPIUM 0.5 MG/ALBUTEROL SULFATE 2.5 MG AMPUL.NEB 3 ML INHALATION ×4 (00:10→20:15)
[2021-09-17 05:26] LABS: Hematocrit 28.1 % (37.0-46.0); Hemoglobin 8.2 g/dL (12.4-15.3); Mean Corpuscular HGB Conc 29.2 g/dL (32.0-36.0); Mean Corpuscular Hemoglobin 28.8 pg (27.0-31.0); Mean Corpuscular Volume 98.6 fL (78.0-102.0); Mean Platelet Volume 10.5 fl (8.7-11.0); Platelet Count Result 191 K/mm3 (150-420); Red Blood Count 2.85 M/mm3 (4.70-6.10); Red Cell Distribution Width 15.2 % (11.6-14.4); White Blood Count 11.5 K/mm3 (4.8-10.8)
[2021-09-17 05:42] LABS: Alanine Aminotransferase 19 U/L (16-63); Albumin Level 2.4 g/dL (3.4-5.0); Alkaline Phosphatase 55 U/L (46-116); Anion Gap 10 mmol/L (8-16); Aspartate Amino Transferase < 10 U/L (15-37); Bilirubin,Total 0.3 mg/dL (0.00-1.00); Blood Urea Nitrogen 53 mg/dL (7-18); Carbon Dioxide 24 mmol/L (21-32); Chloride 105 mmol/L (98-108); Estimated CRCL calculation 23 ml/min; Estimated Glomerular Filt Rate 23; Glucose 217 mg/dL (70-99); Magnesium 2.3 mg/dL (1.8-2.4); NT Pro B Type Natriuretic Pept 907 pg/mL (0-450); Osmolality Calculated 309 mOsm/kg (285-295); Potassium 4.9 mmol/L (3.5-5.1); Sodium 139 mmol/L (136-145); Total Protein 5.2 g/dL (6.4-8.2)
[2021-09-17] MEDS: methylPREDNISolone SOD SUCC 125 MG VIAL 80 MG IV PUSH ×3 (05:59→21:21)
[2021-09-17] MEDS: FERROUS SULFATE 324 MG TABLET PO (09:00)
[2021-09-17] MEDS: ESCITALOPRAM OXALATE 10 MG TABLET PO (09:00)
[2021-09-17] MEDS: CYANOCOBALAMIN 1,000 MCG TABLET 1000 MCG PO (09:00)
[2021-09-17] MEDS: lisinopriL 2.5 MG TABLET PO (09:01)
[2021-09-17] MEDS: FUROSEMIDE INJ 20 MG/2 ML VIAL 40 MG IV PUSH (09:01)
[2021-09-17] MEDS: guaiFENesin 12 HR 600 MG TABCR PO (09:01)
[2021-09-17] MEDS: DOCUSATE SODIUM 100 MG CAPSULE PO ×2 (09:01→17:51)
[2021-09-17] MEDS: DOXYCYCLINE IV 100 MG in DEXTROSE 5% 100 ML IVPB ×2 (09:52→20:56)
--- NOTE | 2021-09-17 10:56 | PHAR ---
09/17/21: verified pt.'s home med Daliresp (Roflumilast) 500 mcg tablet one tab daily. tls
--- NOTE | 2021-09-17 11:33 | PM.IMHP ---
H&P: HPI History of Present Illness Date/Time: 09/17/21 11:33 this is a 80-year-old male who presented to our emergency department with complaints of increased shortness of breath and lower extremity pain and swelling. Patient has a past medical history of COPD, chronic respiratory failure, hypertension, lung CA, nicotine abuse(quit 2010). Chronic kidney disease and history of DVT. Vital signs 121/85, 94, 20, 98.8, 97% on 4 L nasal cannula patient uses 4 L nasal cannula at home continuously. WBCs 12.5, hemoglobin 9.8, hematocrit 32.9, platelets 241, D-dimer 0.32, ABG pH 7.33, CO2 40, O2 85.9, bicarb 20.4, sodium 144, potassium 4.8, BUN 47, creatinine 2.33, glucose 99, lactic acid 0.7, magnesium 2.3, AST 12, ALT 24, chest x-ray unremarkable EKG sinus rhythm with a heart rate of 93. Patient being admitted for COPD in cellulitis to bilateral lower extremities. Patient notes that he still continues to experience shortness of breath although he has chronic shortness of breath it is still increased. He also complains of bilateral lower extremity pain with palpation. Chief Complaint: Shortness of breath, lower extremity swelling Review of Systems Review of Systems: A 14 organ system Review of Systems was performed and pertinent positives included in the HPI, otherwise remaining ROS is negative. [facility] Past Medical History Medical History (Updated 09/17/21 @ 11:47 by PAUL Summers) Abnormal positron emission tomography (PET) of colon Acute exacerbation of chronic obstructive airways disease Bladder cancer Chronic respiratory failure Colon cancer COPD (chronic obstructive pulmonary disease) H/O deep venous thrombosis HTN (hypertension) Lung cancer Obesity (BMI 30.0-34.9) Surgical History Surgical History (Updated 09/17/21 @ 11:42 by PAUL Summers) Colostomy present H/O colectomy History of urostomy Social History Social History Smoking packs per day: 1.5 Smoking cigarettes per day: 30.0 Years smoked: 50 Smoking pack-years: 75.00 Smoking status: Former smoker Tobacco type: cigarettes Second hand tobacco smoke exposure: No Smoking end date: 08/04/10 Alcohol intake: never Substance use: never Substance use type: does not use Gender identity (if verbalized by the patient): Male Sexual Orientation (if Verbalized by the Patient): Straight or Heterosexual Spiritual care concerns: No Meds Home Medications and Allergies Home Medications Medication Instructions Recorded Confirmed Type furosemide [Lasix] 40 mg PO DAILY 06/25/20 09/16/21 History lisinopril [Zestril] 2.5 mg PO DAILY 06/25/20 09/16/21 History cyanocobalamin (vitamin B-12) 1,000 mcg PO DAILY 10/02/20 09/16/21 History [Vitamin B-12] ferrous sulfate 325 mg PO DAILY 10/02/20 09/16/21 History guaifenesin [Mucinex] 600 mg PO DAILY 10/02/20 09/16/21 History apixaban 5 mg tablet 5 mg PO BID tablet 10/13/20 09/16/21 History escitalopram oxalate 10 mg tablet 10 mg PO DAILY 10/13/20 09/16/21 History folic acid 800 mcg tablet 0.8 mg PO DAILY 10/13/20 09/16/21 History Daliresp 500 mcg tablet 500 mcg PO DAILY #30 tablet NS 06/14/21 09/16/21 Rx Trelegy Ellipta 100 mcg-62.5 1 inh INHALATION Q24H #60 ea NS 08/17/21 09/16/21 Rx mcg-25 mcg powder for inhalation ipratropium 0.5 mg-albuterol 3 mg 3 ml INHALATION Q4-6H PRN 90 Days 09/14/21 09/16/21 Rx (2.5 mg base)/3 mL nebulization #1080 ml soln ipratropium bromide 21 mcg (0.03 2 spray INTRANASAL .daily-BID #30 09/14/21 09/16/21 Rx %) nasal spray ml prednisone 10 mg tablet 10 mg .ROUTE .COMPLEX 90 Days #180 09/14/21 09/16/21 Rx tablet Vitamin D3 125 mcg PO DAILY 09/16/21 09/16/21 History Allergies Allergy/AdvReac Type Severity Reaction Status Date / Time No Known Allergies Allergy Verified 09/16/21 15:52 Vital Signs Vital Signs - 24 hr 09/16/21 15:30 09/16/21 15:45 09/16/21 16:05 Temperature 98.5 F
[2021-09-17] MEDS: SACCHAROMYCES BOULARDII 250 MG CAPSULE PO ×2 (13:34→17:50)
[2021-09-18] VITALS (16 sets, daily range): BP systolic 109–136; BP diastolic 64–88; PULSE 83–101; RESP 18–24; TEMP 36.1–36.6; O2SAT 93–99
[2021-09-18] MEDS: IPRATROPIUM 0.5 MG/ALBUTEROL SULFATE 2.5 MG AMPUL.NEB 3 ML INHALATION ×4 (00:16→18:07)
[2021-09-18 05:11] LABS: Mean Corpuscular HGB Conc 30.8 g/dL (32.0-36.0); Mean Corpuscular Volume 97.4 fL (78.0-102.0); Platelet Count Result 182 K/mm3 (150-420); Red Blood Count 2.67 M/mm3 (4.70-6.10); Red Cell Distribution Width 14.9 % (11.6-14.4); White Blood Count 12.6 K/mm3 (4.8-10.8)
[2021-09-18 05:34] LABS: Alanine Aminotransferase 19 U/L (16-63); Albumin Level 2.2 g/dL (3.4-5.0); Alkaline Phosphatase 55 U/L (46-116); Anion Gap 8 mmol/L (8-16); Aspartate Amino Transferase < 10 U/L (15-37); Bilirubin,Total 0.2 mg/dL (0.00-1.00); Blood Urea Nitrogen 65 mg/dL (7-18); Calcium 8.2 mg/dL (8.5-10.1); Carbon Dioxide 25 mmol/L (21-32); Chloride 106 mmol/L (98-108); Estimated CRCL calculation 22 ml/min; Estimated Glomerular Filt Rate 23; Glucose 171 mg/dL (70-99); Magnesium 2.3 mg/dL (1.8-2.4); NT Pro B Type Natriuretic Pept 1199 pg/mL (0-450); Osmolality Calculated 310 mOsm/kg (285-295); Potassium 4.4 mmol/L (3.5-5.1); Sodium 139 mmol/L (136-145); Total Protein 5.3 g/dL (6.4-8.2)
[2021-09-18] MEDS: methylPREDNISolone SOD SUCC 125 MG VIAL 80 MG IV PUSH ×3 (06:09→21:51)
--- NOTE | 2021-09-18 07:30 | ECHO_ITS ---
Patient Info Name: Merrill Hill Age: 80 years : 1940 Gender: Male Ht: 72 in Wt: 221 lbs BSA: 2.28 m2 HR: 100 bpm BP: 109 / 66 mmHg Technical Quality: Good Exam Date: 09/18/2021 8:30 AM Exam Location: [facility] Patient Status: Inpatient Admit Date: 09/16/2021 Staff Ordering Physician: Tish YoungerP-Aaron Supervisor Instrument Maintenance: Vanessa Garner Attending Provider: Saurabh Alston MD Referring Physician: Aren STEIN; Exam Type: CA echo doppler color flow Study Info Indications I51.9 - Heart disease, unspecified Complete two-dimensional, color flow and Doppler transthoracic echocardiogram is performed. Summary 1. Complete two-dimensional, color flow and Doppler transthoracic echocardiogram is performed. 2. Left ventricular chamber dimension is normal. 3. Left ventricular systolic function is normal, estimated at 60-65%. 4. Basal posterior/inferior edward are hypokinetic. 5. There is mildly increased left ventricular wall thickness. 6. Left ventricular septal wall motion is abnormal with septal motion related to bundle branch block. 7. The left ventricular diastolic function is grade I diastolic dysfunction. 8. E/e' 11 is mildly elevated. 9. There is mild aortic valve sclerosis. 10. No pulmonary hypertension, estimated pulmonary arterial systolic pressure is 28 mmHg. Left Ventricle Basal posterior/inferior edward are hypokinetic. E/e' 11 is mildly elevated. Left ventricular chamber dimension is normal. Left ventricular systolic function is normal, estimated at 60-65%. There is mildly increased left ventricular wall thickness. Left ventricular septal wall motion is abnormal with septal motion related to bundle branch block. The left ventricular diastolic function is grade I diastolic dysfunction. Right Ventricle Right ventricular systolic function is normal and with normal TAPSE 1.9 cm. Right ventricular chamber dimension is normal. Left Atria Left atrial chamber dimension is normal. Right Atria Right atrial chamber dimension is normal. Aortic Valve The aortic valve is trileaflet. There is mild aortic valve sclerosis. There is no aortic valve stenosis. There is no aortic valve regurgitation. Pulmonic Valve There is no pulmonic regurgitation. Mitral Valve There is no mitral valve stenosis. There is no mitral valve regurgitation. Tricuspid Valve There is no tricuspid valve regurgitation. No pulmonary hypertension, estimated pulmonary arterial systolic pressure is 28 mmHg. Pericardium/Pleural There is no pericardial effusion. Inferior Vena Cava Dilated inferior vena cava with >50% collapse upon inspiration consistent with normal right atrial pressure, 5 mmHg. Aorta The aortic root size at the sinus of Valsalva is normal. Left Ventricular Outflow Tract Name Value Normal LVOT 2D LVOT Diameter 2.1 cm LVOT Doppler LVOT Peak Velocity 127 cm/s LVOT Peak Gradient 6 mmHg LVOT Mean Gradient 4 mmHg LVOT VTI 24 cm LVOT VTI/AV VTI Ratio
--- NOTE | 2021-09-18 09:18 | P.PN_ITS ---
Progress Note: A&P Assessment and Plan (1) Congestive heart failure: Qualifiers: Heart failure chronicity: acute on chronic Heart failure type: systolic Qualified Code(s): I50.23 - Acute on chronic systolic (congestive) heart failure Code(s): I50.9 - Heart failure, unspecified Status: Acute Assessment and Plan: * [id number] * Continue Lasix 40 daily and strict I's and O's * Chest x-ray does not indicate pulmonary edema * Echo pending * I's and O's -650 * Weight reviewed (2) H/O deep venous thrombosis: Code(s): Z86.718 - Personal history of other venous thrombosis and embolism Status: Acute Assessment and Plan: * Continue Eliquis * D-dimer within normal limit (3) Acute exacerbation of chronic obstructive airways disease: Code(s): J44.1 - Chronic obstructive pulmonary disease with (acute) exacerbation Status: Acute Assessment and Plan: * End-stage * Continue duo nebulizer along with Solu-Medrol, supplementary oxygen and home medication * Chest x-ray unremarkable * follow-up I Dr. Yohannes Vargas dye house vat worker * Uses 2.5 L with activity sometimes at rest (4) HTN (hypertension): Code(s): I10 - Essential (primary) hypertension Status: Acute Assessment and Plan: * Stable * Continue home medication * (5) COPD (chronic obstructive pulmonary disease): Qualifiers: COPD type: COPD with acute exacerbation Qualified Code(s): J44.1 - Chronic obstructive pulmonary disease with (acute) exacerbation Code(s): J44.9 - Chronic obstructive pulmonary disease, unspecified Status: Acute Assessment and Plan: * Follow-up I Dr. Yohannes Vargas dye house vat worker * Uses 2.5 L with activity sometimes at rest * Continue DuoNeb nebulizer, supplementary oxygen with Solu-Medrol and home medication (6) Anemia: Code(s): D64.9 - Anemia, unspecified Status: Acute Assessment and Plan: * Chronic * Patient receives iron transfusions * H&H8.2/28.1>8.0/26.0 baseline appears to be7-05/01-33 * No active bleeding noted (7) Lung cancer: Code(s): C34.90 - Malignant neoplasm of unspecified part of unspecified bronchus or lung Status: Acute Assessment and Plan: * Patient sees oncologist, Dr. Gonzalez at [facility] (8) Bladder cancer: Code(s): C67.9 - Malignant neoplasm of bladder, unspecified Status: Acute Assessment and Plan: * Bladder cancer 2008 w/urostomy (9) Cellulitis: Code(s): L03.90 - Cellulitis, unspecified Status: Acute Assessment and Plan: * Bilateral lower extremities with warmth, pain and redness * Started doxycycline (10) Tachycardia: Code(s): R00.0 - Tachycardia, unspecified Status: Acute Assessment and Plan: * Patient notes that his heart rate went into 120s 30s while at home with ambulation * Started patient on low-dose metoprolol 6.25 * Will closely monitor * Highest heart rate as inpatient 136 possibly secondary to congestive heart failure * Will adjust medication as needed * Continue telemetry (11) Bacteremia: Code(s): R78.81 - Bacteremia Status: Acute Assessment and Plan: * Gram negative bacilli from aerobic bottle only * Rocephin started * Sensitivity pending (12) CKD (chronic kidney disease), stage IV: Code(s): N18.4 - Chronic kidney disease, stage 4 (severe) Status: Acute Assessment and Plan: * Patient is followed by a proof tester * BUN/CR 47/2.33, 53/2.65,6
--- NOTE | 2021-09-18 09:18 | WPDPN ---
Progress Note: A&P Assessment and Plan (1) Congestive heart failure: Qualifiers: Heart failure chronicity: acute on chronic Heart failure type: systolic Qualified Code(s): I50.23 - Acute on chronic systolic (congestive) heart failure Code(s): I50.9 - Heart failure, unspecified Status: Acute Assessment and Plan: [id number] Continue Lasix 40 daily and strict I's and O's Chest x-ray does not indicate pulmonary edema Echo pending I's and O's -650 Weight reviewed (2) H/O deep venous thrombosis: Code(s): Z86.718 - Personal history of other venous thrombosis and embolism Status: Acute Assessment and Plan: Continue Eliquis D-dimer within normal limit (3) Acute exacerbation of chronic obstructive airways disease: Code(s): J44.1 - Chronic obstructive pulmonary disease with (acute) exacerbation Status: Acute Assessment and Plan: End-stage Continue duo nebulizer along with Solu-Medrol, supplementary oxygen and home medication Chest x-ray unremarkable follow-up I Dr. Yohannes Vargas ocean fishing guide Uses 2.5 L with activity sometimes at rest (4) HTN (hypertension): Code(s): I10 - Essential (primary) hypertension Status: Acute Assessment and Plan: Stable Continue home medication (5) COPD (chronic obstructive pulmonary disease): Qualifiers: COPD type: COPD with acute exacerbation Qualified Code(s): J44.1 - Chronic obstructive pulmonary disease with (acute) exacerbation Code(s): J44.9 - Chronic obstructive pulmonary disease, unspecified Status: Acute Assessment and Plan: Follow-up I Dr. Yohannes Vargas ocean fishing guide Uses 2.5 L with activity sometimes at rest Continue DuoNeb nebulizer, supplementary oxygen with Solu-Medrol and home medication (6) Anemia: Code(s): D64.9 - Anemia, unspecified Status: Acute Assessment and Plan: Chronic Patient receives iron transfusions H&H8.2/28.1>8.0/26.0 baseline appears to be7-05/01-33 No active bleeding noted (7) Lung cancer: Code(s): C34.90 - Malignant neoplasm of unspecified part of unspecified bronchus or lung Status: Acute Assessment and Plan: Patient sees oncologist, Dr. Gonzalez at [facility] (8) Bladder cancer: Code(s): C67.9 - Malignant neoplasm of bladder, unspecified Status: Acute Assessment and Plan: Bladder cancer 2007 w/urostomy (9) Cellulitis: Code(s): L03.90 - Cellulitis, unspecified Status: Acute Assessment and Plan: Bilateral lower extremities with warmth, pain and redness Started doxycycline (10) Tachycardia: Code(s): R00.0 - Tachycardia, unspecified Status: Acute Assessment and Plan: Patient notes that his heart rate went into 120s 30s while at home with ambulation Started patient on low-dose metoprolol 6.25 Will closely monitor Highest heart rate as inpatient 136 possibly secondary to congestive heart failure Will adjust medication as needed Continue telemetry (11) Bacteremia: Code(s): R78.81 - Bacteremia Status: Acute Assessment and Plan: Gram negative bacilli from aerobic bottle only Rocephin started Sensitivity pending (12) CKD (chronic kidney disease), stage IV: Code(s): N18.4 - Chronic kidney disease, stage 4 (severe) Status: Acute Assessment and Plan: Patient is followed by a transport technician BUN/CR 47/2.33, 53/2.65,65/2.71 worsening due to diuretic use, has backed off of diuretics. We will continue to closely monitor. Baseline creatinine2.10-2.30 Will renal dose all medication Avoid nephrotoxic agents Subjective Date/time seen: 09/18/21 09:18 Patient notes that his condition has improved. He also noted that his left leg pain has improved. Patient notes that previously to getting antibiotics he would feel pain when he bear weight to that affected leg. He notes that he no longer
[2021-09-18] MEDS: CYANOCOBALAMIN 1,000 MCG TABLET 1000 MCG PO (09:34)
[2021-09-18] MEDS: SACCHAROMYCES BOULARDII 250 MG CAPSULE PO ×2 (09:34→12:31)
[2021-09-18] MEDS: lisinopriL 2.5 MG TABLET PO (09:34)
[2021-09-18] MEDS: FERROUS SULFATE 324 MG TABLET PO (09:34)
[2021-09-18] MEDS: DOCUSATE SODIUM 100 MG CAPSULE PO (09:34)
[2021-09-18] MEDS: guaiFENesin 12 HR 600 MG TABCR PO (09:35)
[2021-09-18] MEDS: FUROSEMIDE INJ 20 MG/2 ML VIAL 40 MG IV PUSH (09:35)
[2021-09-18] MEDS: ESCITALOPRAM OXALATE 10 MG TABLET PO (09:36)
[2021-09-18] MEDS: DOXYCYCLINE IV 100 MG in DEXTROSE 5% 100 ML IVPB ×2 (10:20→21:21)
[2021-09-18] MEDS: METOPROLOL TARTRATE 6.25 MG TABLET PO ×2 (12:31→21:04)
[2021-09-18] MEDS: ENOXAPARIN 30 MG/0.3 ML SYRINGE SUB-Q (12:31)
--- NOTE | 2021-09-18 14:19 | PC.NURSE ---
1013 patient changed to inpatient at this time. front desk clerk aware.
[2021-09-18] MEDS: DEXTROSE 5% 100 ML (21:20)
[2021-09-19] VITALS (20 sets, daily range): BP systolic 105–136; BP diastolic 58–73; PULSE 55–107; RESP 18–26; TEMP 36–36.6; O2SAT 93–99
[2021-09-19] MEDS: IPRATROPIUM 0.5 MG/ALBUTEROL SULFATE 2.5 MG AMPUL.NEB 3 ML INHALATION ×5 (00:13→23:38)
[2021-09-19 05:31] LABS: Mean Corpuscular Hemoglobin 29.5 pg (27.0-31.0); Mean Corpuscular Volume 98.4 fL (78.0-102.0); Mean Platelet Volume 10.6 fl (8.7-11.0); Platelet Count Result 249 K/mm3 (150-420); Red Blood Count 3.05 M/mm3 (4.70-6.10); White Blood Count 17.1 K/mm3 (4.8-10.8)
[2021-09-19 05:53] LABS: Alanine Aminotransferase 29 U/L (16-63); Albumin Level 2.5 g/dL (3.4-5.0); Alkaline Phosphatase 68 U/L (46-116); Anion Gap 13 mmol/L (8-16); Aspartate Amino Transferase 13 U/L (15-37); Bilirubin,Total 0.2 mg/dL (0.00-1.00); Blood Urea Nitrogen 83 mg/dL (7-18); Calcium 8.7 mg/dL (8.5-10.1); Carbon Dioxide 23 mmol/L (21-32); Chloride 103 mmol/L (98-108); Estimated CRCL calculation 18 ml/min; Estimated Glomerular Filt Rate 18; Glucose 118 mg/dL (70-99); Magnesium 2.6 mg/dL (1.8-2.4); NT Pro B Type Natriuretic Pept 1680 pg/mL (0-450); Osmolality Calculated 314 mOsm/kg (285-295); Potassium 5.1 mmol/L (3.5-5.1); Sodium 139 mmol/L (136-145); Total Protein 6.2 g/dL (6.4-8.2)
[2021-09-19] MEDS: methylPREDNISolone SOD SUCC 125 MG VIAL 80 MG IV PUSH (06:25)
--- NOTE | 2021-09-19 08:11 | PM.IMHP ---
H&P: HPI History of Present Illness Date/Time: 09/19/21 08:11 Review of Systems Review of Systems: shortness of breath All systems reviewed & are unremarkable except as noted in HPI and below PMFSH Past Medical History Medical History Abnormal positron emission tomography (PET) of colon Acute exacerbation of chronic obstructive airways disease Bladder cancer Chronic respiratory failure Colon cancer COPD (chronic obstructive pulmonary disease) H/O deep venous thrombosis HTN (hypertension) Lung cancer Obesity (BMI 30.0-34.9) Surgical History Surgical History Colostomy present H/O colectomy History of urostomy Social History Social History Smoking packs per day: 1.5 Smoking cigarettes per day: 30.0 Years smoked: 50 Smoking pack-years: 75.00 Smoking status: Former smoker Tobacco type: cigarettes Second hand tobacco smoke exposure: No Smoking end date: 08/04/10 Alcohol intake: never Substance use: never Substance use type: does not use Gender identity (if verbalized by the patient): Male Sexual Orientation (if Verbalized by the Patient): Straight or Heterosexual Spiritual care concerns: No Meds Home Medications and Allergies Home Medications Medication Instructions Recorded Confirmed Type furosemide [Lasix] 40 mg PO DAILY 06/25/20 09/16/21 History lisinopril [Zestril] 2.5 mg PO DAILY 06/25/20 09/16/21 History cyanocobalamin (vitamin B-12) 1,000 mcg PO DAILY 10/02/20 09/16/21 History [Vitamin B-12] ferrous sulfate 325 mg PO DAILY 10/02/20 09/16/21 History guaifenesin [Mucinex] 600 mg PO DAILY 10/02/20 09/16/21 History apixaban 5 mg tablet 5 mg PO BID tablet 10/13/20 09/16/21 History escitalopram oxalate 10 mg tablet 10 mg PO DAILY 10/13/20 09/16/21 History folic acid 800 mcg tablet 0.8 mg PO DAILY 10/13/20 09/16/21 History Daliresp 500 mcg tablet 500 mcg PO DAILY #30 tablet NS 06/14/21 09/16/21 Rx Trelegy Ellipta 100 mcg-62.5 1 inh INHALATION Q24H #60 ea NS 08/17/21 09/16/21 Rx mcg-25 mcg powder for inhalation ipratropium 0.5 mg-albuterol 3 mg 3 ml INHALATION Q4-6H PRN 90 Days 09/14/21 09/16/21 Rx (2.5 mg base)/3 mL nebulization #1080 ml soln ipratropium bromide 21 mcg (0.03 2 spray INTRANASAL .daily-BID #30 09/14/21 09/16/21 Rx %) nasal spray ml prednisone 10 mg tablet 10 mg .ROUTE .COMPLEX 90 Days #180 09/14/21 09/16/21 Rx tablet Vitamin D3 125 mcg PO DAILY 09/16/21 09/16/21 History Allergies Allergy/AdvReac Type Severity Reaction Status Date / Time No Known Allergies Allergy Verified 09/16/21 15:52 Vital Signs Vital Signs - 24 hr 09/18/21 12:00 09/18/21 12:31 09/18/21 12:49 Temperature 97 F L Pulse Rate 84 88 88 Respiratory Rate 22 H 20 Blood Pressure Pulse Oximetry 95 97 09/18/21 12:58 09/18/21 15:09 09/18/21 18:07 Temperature 97.8 F Pulse Rate 92 83 97 Respiratory Rate 20 20 24 H Blood Pressure 109/88 Pulse Oximetry 98 96 97 09/18/21 18:17 09/18/21 20:00 09/18/21 21:04 Temperature 97.1 F L Pulse Rate 92 84 84 Respiratory Rate 24 H 22 H Blood Pressure Pulse Oximetry 97 94 09/19/21 00:00 09/19/21 00:13 09/19/21 00:24 Temperature 96.8 F L Pulse Rate 91 97 78 Respiratory Rate 20 20 20 Blood Pressure 116/68 Pulse Oximetry 97 99 09/19/21 04:00 09/19/21 05:34 09/19/21 05:45 Temperature 97.1 F L Pulse Rate 84 94 91 Respiratory Rate 20 24 H 20 Blood Pressure 114/62 Pulse Oximetry 94 96 Exam Narrative: GENERAL:Well-appearing, well-nourished, and in no acute distress. HEAD:Normocephalic, atraumatic. EYES: PERRLA and EOMI. ENT: Nares clear, no rhinorrhea or epistaxis. Mucous membranes moist. NECK: Supple. CHEST: Clear to auscultation. No respiratory distress. HEART: Regular rate and rhythm. No murmur heard. Nor
--- NOTE | 2021-09-19 08:13 | P.PN_ITS ---
Progress Note: A&P Assessment and Plan (1) Congestive heart failure: Qualifiers: Heart failure chronicity: acute on chronic Heart failure type: systolic Qualified Code(s): I50.23 - Acute on chronic systolic (congestive) heart failure Code(s): I50.9 - Heart failure, unspecified Status: Acute Assessment and Plan: * [id number] * Continue Lasix 40 daily and strict I's and O's * Chest x-ray does not indicate pulmonary edema * Echo EF is 65% * I's and O's * Weight reviewed * 1 additional dosage of lasix today (2) H/O deep venous thrombosis: Code(s): Z86.718 - Personal history of other venous thrombosis and embolism Status: Acute Assessment and Plan: * Continue Eliquis * D-dimer within normal limit (3) Acute exacerbation of chronic obstructive airways disease: Code(s): J44.1 - Chronic obstructive pulmonary disease with (acute) exacerbation Status: Acute Assessment and Plan: * End-stage * Continue duo nebulizer along with Solu-Medrol, supplementary oxygen and home medication * Chest x-ray unremarkable * follow-up I Dr. Yohannes Vargas sat math tutor * Uses 2.5 L with activity sometimes at rest * IV Steroids stopped and placed on oral Steroid (4) HTN (hypertension): Code(s): I10 - Essential (primary) hypertension Status: Acute Assessment and Plan: * Stable * Continue home medication * (5) COPD (chronic obstructive pulmonary disease): Qualifiers: COPD type: COPD with acute exacerbation Qualified Code(s): J44.1 - Chronic obstructive pulmonary disease with (acute) exacerbation Code(s): J44.9 - Chronic obstructive pulmonary disease, unspecified Status: Acute Assessment and Plan: * Follow-up I Dr. Yohannes Vargas sat math tutor * Uses 2.5 L with activity sometimes at rest * Continue DuoNeb nebulizer, supplementary oxygen with Solu-Medrol and home medication (6) Anemia: Code(s): D64.9 - Anemia, unspecified Status: Acute Assessment and Plan: * Chronic * Patient receives iron transfusions * H&H8.2/28.1>8.0/26.0 baseline appears to be7-05/01-33 * No active bleeding noted (7) Lung cancer: Code(s): C34.90 - Malignant neoplasm of unspecified part of unspecified bronchus or lung Status: Acute Assessment and Plan: * Patient sees oncologist, Dr. Gonzalez at [facility] (8) Bladder cancer: Code(s): C67.9 - Malignant neoplasm of bladder, unspecified Status: Acute Assessment and Plan: * Bladder cancer 2008 w/urostomy (9) Cellulitis: Code(s): L03.90 - Cellulitis, unspecified Status: Acute Assessment and Plan: * Bilateral lower extremities with warmth, pain and redness * Started doxycycline (10) Tachycardia: Code(s): R00.0 - Tachycardia, unspecified Status: Acute Assessment and Plan: * Patient notes that his heart rate went into 120s 30s while at home with ambulation * Started patient on low-dose metoprolol 6.25 * Will closely monitor * Highest heart rate as inpatient 136 possibly secondary to congestive heart failure * Will adjust medication as needed * Continue telemetry (11) Bacteremia: Code(s): R78.81 - Bacteremia Status: Acute Assessment and Plan: * Gram negative bacilli from aerobic bottle only my be cross contamination * Rocephin started * Sensitivity pending * WBC 17.1 (12) CKD (chronic kidney disease), stage IV: Code(s): N18.4 - Chronic kidney disease, stage 4
--- NOTE | 2021-09-19 08:13 | WPDPN ---
Progress Note: A&P Assessment and Plan (1) Congestive heart failure: Qualifiers: Heart failure chronicity: acute on chronic Heart failure type: systolic Qualified Code(s): I50.23 - Acute on chronic systolic (congestive) heart failure Code(s): I50.9 - Heart failure, unspecified Status: Acute Assessment and Plan: [id number] Continue Lasix 40 daily and strict I's and O's Chest x-ray does not indicate pulmonary edema Echo EF is 65% I's and O's Weight reviewed 1 additional dosage of lasix today (2) H/O deep venous thrombosis: Code(s): Z86.718 - Personal history of other venous thrombosis and embolism Status: Acute Assessment and Plan: Continue Eliquis D-dimer within normal limit (3) Acute exacerbation of chronic obstructive airways disease: Code(s): J44.1 - Chronic obstructive pulmonary disease with (acute) exacerbation Status: Acute Assessment and Plan: End-stage Continue duo nebulizer along with Solu-Medrol, supplementary oxygen and home medication Chest x-ray unremarkable follow-up I Dr. Yohannes Vargas skin carver Uses 2.5 L with activity sometimes at rest IV Steroids stopped and placed on oral Steroid (4) HTN (hypertension): Code(s): I10 - Essential (primary) hypertension Status: Acute Assessment and Plan: Stable Continue home medication (5) COPD (chronic obstructive pulmonary disease): Qualifiers: COPD type: COPD with acute exacerbation Qualified Code(s): J44.1 - Chronic obstructive pulmonary disease with (acute) exacerbation Code(s): J44.9 - Chronic obstructive pulmonary disease, unspecified Status: Acute Assessment and Plan: Follow-up I Dr. Yohannes Vargas skin carver Uses 2.5 L with activity sometimes at rest Continue DuoNeb nebulizer, supplementary oxygen with Solu-Medrol and home medication (6) Anemia: Code(s): D64.9 - Anemia, unspecified Status: Acute Assessment and Plan: Chronic Patient receives iron transfusions H&H8.2/28.1>8.0/26.0 baseline appears to be7-05/01-33 No active bleeding noted (7) Lung cancer: Code(s): C34.90 - Malignant neoplasm of unspecified part of unspecified bronchus or lung Status: Acute Assessment and Plan: Patient sees oncologist, Dr. Gonzalez at [facility] (8) Bladder cancer: Code(s): C67.9 - Malignant neoplasm of bladder, unspecified Status: Acute Assessment and Plan: Bladder cancer 2007 w/urostomy (9) Cellulitis: Code(s): L03.90 - Cellulitis, unspecified Status: Acute Assessment and Plan: Bilateral lower extremities with warmth, pain and redness Started doxycycline (10) Tachycardia: Code(s): R00.0 - Tachycardia, unspecified Status: Acute Assessment and Plan: Patient notes that his heart rate went into 120s 30s while at home with ambulation Started patient on low-dose metoprolol 6.25 Will closely monitor Highest heart rate as inpatient 136 possibly secondary to congestive heart failure Will adjust medication as needed Continue telemetry (11) Bacteremia: Code(s): R78.81 - Bacteremia Status: Acute Assessment and Plan: Gram negative bacilli from aerobic bottle only my be cross contamination Rocephin started Sensitivity pending WBC 17.1 (12) CKD (chronic kidney disease), stage IV: Code(s): N18.4 - Chronic kidney disease, stage 4 (severe) Status: Acute Assessment and Plan: Patient is followed by a power press operator BUN/CR 47/2.33, 53/2.65,65/2.71 worsening due to diuretic use, has backed off of diuretics. We will continue to closely monitor. Baseline creatinine2.10-2.30CR today 3.32 will stop Steroids 1x dose of increase lasix Will renal dose all medication Avoid nephrotoxic agents Subjective Date/time seen: 09/19/21 08:13 Today Merrill states he is feeling better patient's whit
[2021-09-19] MEDS: SACCHAROMYCES BOULARDII 250 MG CAPSULE PO ×3 (09:47→17:06)
[2021-09-19] MEDS: FERROUS SULFATE 324 MG TABLET PO (09:48)
[2021-09-19] MEDS: ESCITALOPRAM OXALATE 10 MG TABLET PO (09:48)
[2021-09-19] MEDS: lisinopriL 2.5 MG TABLET PO (09:48)
[2021-09-19] MEDS: METOPROLOL TARTRATE 6.25 MG TABLET PO ×2 (09:48→21:16)
[2021-09-19] MEDS: guaiFENesin 12 HR 600 MG TABCR PO (09:49)
[2021-09-19] MEDS: CYANOCOBALAMIN 1,000 MCG TABLET 1000 MCG PO (09:49)
[2021-09-19] MEDS: DOCUSATE SODIUM 100 MG CAPSULE PO ×2 (09:49→17:06)
[2021-09-19] MEDS: ENOXAPARIN 30 MG/0.3 ML SYRINGE SUB-Q (09:50)
[2021-09-19] MEDS: FUROSEMIDE INJ 20 MG/2 ML VIAL 40 MG IV PUSH (09:50)
[2021-09-19] MEDS: FUROSEMIDE INJ 20 MG/2 ML VIAL IV PUSH (10:04)
[2021-09-19] MEDS: predniSONE 20 MG TABLET PO (10:04)
[2021-09-19] MEDS: DOXYCYCLINE IV 100 MG in DEXTROSE 5% 100 ML IVPB ×2 (10:06→21:16)
[2021-09-20] VITALS (22 sets, daily range): BP systolic 112–134; BP diastolic 60–74; PULSE 75–104; RESP 13–24; TEMP 36.2–36.8; O2SAT 91–98
--- NOTE | 2021-09-20 00:25 | PC.NURSE ---
Pt changed his urostomy bag independently after saying the previous one was leaking. Urine was then cleaned up on the floor with towels and sanitizing wipes. Pt stated he prefers the door wide open so this was done per request.
--- NOTE | 2021-09-20 05:18 | PC.NURSE ---
Pt ambulated from the bed to the bathroom with 1 assist of Kaylene Whitfield RN. via walker with a portable O2 tank running at 4L since pt gets short of breath with exertion.
[2021-09-20 05:29] LABS: Hematocrit 24.7 % (37.0-46.0); Hemoglobin 7.5 g/dL (12.4-15.3); Mean Corpuscular HGB Conc 30.4 g/dL (32.0-36.0); Mean Corpuscular Hemoglobin 29.6 pg (27.0-31.0); Mean Corpuscular Volume 97.6 fL (78.0-102.0); Mean Platelet Volume 10.6 fl (8.7-11.0); Platelet Count Result 213 K/mm3 (150-420); Red Blood Count 2.53 M/mm3 (4.70-6.10); White Blood Count 12.1 K/mm3 (4.8-10.8)
[2021-09-20 05:43] LABS: Anion Gap 10 mmol/L (8-16); Blood Urea Nitrogen 100 mg/dL (7-18); Calcium 8.2 mg/dL (8.5-10.1); Carbon Dioxide 23 mmol/L (21-32); Chloride 104 mmol/L (98-108); Estimated CRCL calculation 20 ml/min; Estimated Glomerular Filt Rate 18; Glucose 140 mg/dL (70-99); Osmolality Calculated 317 mOsm/kg (285-295); Potassium 4.9 mmol/L (3.5-5.1); Sodium 137 mmol/L (136-145)
[2021-09-20] MEDS: IPRATROPIUM 0.5 MG/ALBUTEROL SULFATE 2.5 MG AMPUL.NEB 3 ML INHALATION ×4 (05:47→23:41)
--- NOTE | 2021-09-20 05:47 | PC.NURSE ---
Pt ambulated from bathroom to bed with 1 assist of Kaylene Whitfield RN. via gait belt. Pt became very short of breath, and is sitting at the edge of the bed practicing pursed lip breathing.
--- NOTE | 2021-09-20 06:40 | PC.NURSE ---
Spoke to Kaya Tejeda NP about pt's H&H of 7.5/24.7. Orders pending at this time.
[2021-09-20 07:39] LABS: NT Pro B Type Natriuretic Pept 1510 pg/mL (0-450)
--- NOTE | 2021-09-20 07:52 | P.PNCROSS_ITS ---
Event Note Event Note Event Note: Call placed to Dr. Carrillo who is a GI doctor who scoped patient back in October 2020 discussed patient's hemoglobin dropping and noticing blood in his stool. At the time of patient scope Dr. 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 Discussed with Dr. Carrillo about discontinuing patient's Lovenox any recommendations or if he was able to do anything with patient. Dr. Carrillo informed me that he was not able to do anything with patient due to scoping would not fix patient's mass and that we may need to consider: Surgery. After conversation with patient he declined a phone call to surgery he is on for me that he is spoken to the top surgeon at [facility] who has informed him that surgery was not a option and he would more than likely not make it if he goes to surgery. Patient informed me he does not even want me to phone a surgical consult RN Pema has come into the room to verify patient's wishes although at this time he does agree to have blood given. I will be placed to [facility] in [place] to have a conversation regarding patient
[2021-09-20] MEDS: DOCUSATE SODIUM 100 MG CAPSULE PO (09:18)
[2021-09-20] MEDS: predniSONE 20 MG TABLET PO (09:18)
[2021-09-20] MEDS: METOPROLOL TARTRATE 6.25 MG TABLET PO ×2 (09:18→20:14)
[2021-09-20] MEDS: ESCITALOPRAM OXALATE 10 MG TABLET PO (09:18)
[2021-09-20] MEDS: CYANOCOBALAMIN 1,000 MCG TABLET 1000 MCG PO (09:18)
[2021-09-20] MEDS: FERROUS SULFATE 324 MG TABLET PO (09:19)
[2021-09-20] MEDS: guaiFENesin 12 HR 600 MG TABCR PO (09:19)
[2021-09-20] MEDS: lisinopriL 2.5 MG TABLET PO (09:20)
[2021-09-20] MEDS: FUROSEMIDE INJ 20 MG/2 ML VIAL 40 MG IV PUSH (09:20)
[2021-09-20] MEDS: PANTOPRAZOLE SODIUM IV 40 MG VIAL IV PUSH (09:20)
--- NOTE | 2021-09-20 09:30 | PM.EVENT ---
Event Note Event Note Event Note: Call placed to Dr. Finch's office regarding patient's condition and recommendation and if this patient was a candidate for a transfer Discussed with Dr. Ash his acute on chronic renal failure, with Congestive heart failure, GI bleed , Patient at this time is not a candidate for surgery and he would like to see patient and treat him accordingly. Dr. Finch's would like for patient to be transferred to [facility] where he can see patient and take care of him with Nephrology there to follow him. Patient is willing to transfer as well. [id number] Call placed to [facility] transfer line where Dr Finch is on the line with the transfer [id number] awaiting return phone call for hospitalist to accept patient
--- NOTE | 2021-09-20 09:39 | PC.NURSE ---
[facility]
[2021-09-20] MEDS: SODIUM CHLORIDE 0.9% IV 250 ML 30 ML IV CONT (10:45)
--- NOTE | 2021-09-20 11:07 | PM.EVENT ---
Event Note Event Note Event Note: DR. Allen has accepted for the hosptialist Dr. Finch has accepted for the oncologist Dr. Sanchez has accepted for Nephrology.
--- NOTE | 2021-09-20 12:46 | P.TS_ITS ---
Transfer Discharge Sum: Prov Provider Date of admission: 09/18/21 10:13 Primary care physician: Nicola Oliva MD Admitting clinician: Saurabh Alston MD DS: Discharge Diagnosis Discharge Diagnosis (1) Congestive heart failure: Qualifiers: Heart failure chronicity: acute on chronic Heart failure type: systolic Qualified Code(s): I50.23 - Acute on chronic systolic (congestive) heart failure Code(s): I50.9 - Heart failure, unspecified Status: Acute Assessment and Plan: * [id number]>1680> 1510 * Continue Lasix 40 daily and strict I's and O's * Chest x-ray does not indicate pulmonary edema * Echo EF is 65% * I's and O's * Weight reviewed * 1 additional dosage of Lasix yesterday (2) H/O deep venous thrombosis: Code(s): Z86.718 - Personal history of other venous thrombosis and embolism Status: Acute Assessment and Plan: * Continue Eliquis * D-dimer within normal limit (3) Acute exacerbation of chronic obstructive airways disease: Code(s): J44.1 - Chronic obstructive pulmonary disease with (acute) exacerbation Status: Acute Assessment and Plan: * End-stage * Continue duo nebulizer along with Solu-Medrol, supplementary oxygen and home medication * Chest x-ray unremarkable * follow-up I Dr. Yohannes Vargas high worker * Uses 2.5 L with activity sometimes at rest * IV Steroids stopped and placed on oral Steroid (4) HTN (hypertension): Code(s): I10 - Essential (primary) hypertension Status: Acute Assessment and Plan: * Stable * Continue home medication * (5) COPD (chronic obstructive pulmonary disease): Qualifiers: COPD type: COPD with acute exacerbation Qualified Code(s): J44.1 - Chronic obstructive pulmonary disease with (acute) exacerbation Code(s): J44.9 - Chronic obstructive pulmonary disease, unspecified Status: Acute Assessment and Plan: * Follow-up I Dr. Yohannes Vargas high worker * Uses 2.5 L with activity sometimes at rest * Continue DuoNeb nebulizer, supplementary oxygen with Solu-Medrol and home medication (6) Anemia: Code(s): D64.9 - Anemia, unspecified Status: Acute Assessment and Plan: * Chronic * Patient receives iron transfusions * H&H8.2/28.1>8.0/26.0 ....7.5/24.7 * 1 unit of blood given will recheck 4 hour post blood bleeding noted in stool last night per nursing (7) Lung cancer: Code(s): C34.90 - Malignant neoplasm of unspecified part of unspecified bronchus or lung Status: Acute Assessment and Plan: * Patient sees oncologist, Dr. Gonzalez at [facility] * Dr. Finch as [facility] in [place] (8) Bladder cancer: Code(s): C67.9 - Malignant neoplasm of bladder, unspecified Status: Acute Assessment and Plan: * Bladder cancer 2007 w/urostomy * One kidney since (9) Cellulitis: Code(s): L03.90 - Cellulitis, unspecified Status: Acute Assessment and Plan: * Bilateral lower extremities with warmth, pain and redness * Started doxycycline (10) Tachycardia: Code(s): R00.0 - Tachycardia, unspecified Status: Acute Assessment and Plan: * Patient notes that his heart rate went into 120s 30s while at home with ambulation * Started patient on low-dose metoprolol 6.25 * Will closely monitor * Highest heart rate as inpatient 136 possibly secondary to congestive heart failure * Will adjust medication as needed * Continue telemetry (11) Jo
--- NOTE | 2021-09-20 12:46 | PM.TDS ---
Transfer Discharge Sum: Prov Provider Date of admission: 09/18/21 10:13 Primary care physician: Nicola Oliva MD Admitting clinician: Saurabh Alston MD DS: Discharge Diagnosis Discharge Diagnosis (1) Congestive heart failure: Qualifiers: Heart failure chronicity: acute on chronic Heart failure type: systolic Qualified Code(s): I50.23 - Acute on chronic systolic (congestive) heart failure Code(s): I50.9 - Heart failure, unspecified Status: Acute Assessment and Plan: [id number]>1199>1680> 1510 Continue Lasix 40 daily and strict I's and O's Chest x-ray does not indicate pulmonary edema Echo EF is 65% I's and O's Weight reviewed 1 additional dosage of Lasix yesterday (2) H/O deep venous thrombosis: Code(s): Z86.718 - Personal history of other venous thrombosis and embolism Status: Acute Assessment and Plan: Continue Eliquis D-dimer within normal limit (3) Acute exacerbation of chronic obstructive airways disease: Code(s): J44.1 - Chronic obstructive pulmonary disease with (acute) exacerbation Status: Acute Assessment and Plan: End-stage Continue duo nebulizer along with Solu-Medrol, supplementary oxygen and home medication Chest x-ray unremarkable follow-up I Dr. Yohannes Vargas fun house attendant Uses 2.5 L with activity sometimes at rest IV Steroids stopped and placed on oral Steroid (4) HTN (hypertension): Code(s): I10 - Essential (primary) hypertension Status: Acute Assessment and Plan: Stable Continue home medication (5) COPD (chronic obstructive pulmonary disease): Qualifiers: COPD type: COPD with acute exacerbation Qualified Code(s): J44.1 - Chronic obstructive pulmonary disease with (acute) exacerbation Code(s): J44.9 - Chronic obstructive pulmonary disease, unspecified Status: Acute Assessment and Plan: Follow-up I Dr. Yohannes Vargas fun house attendant Uses 2.5 L with activity sometimes at rest Continue DuoNeb nebulizer, supplementary oxygen with Solu-Medrol and home medication (6) Anemia: Code(s): D64.9 - Anemia, unspecified Status: Acute Assessment and Plan: Chronic Patient receives iron transfusions H&H8.2/28.1>8.0/26.0 ....7.5/24.7 1 unit of blood given will recheck HH 4 hour post blood bleeding noted in stool last night per nursing (7) Lung cancer: Code(s): C34.90 - Malignant neoplasm of unspecified part of unspecified bronchus or lung Status: Acute Assessment and Plan: Patient sees oncologist, Dr. Gonzalez at [facility] Dr. Finch as [facility] in [place] (8) Bladder cancer: Code(s): C67.9 - Malignant neoplasm of bladder, unspecified Status: Acute Assessment and Plan: Bladder cancer 2008 w/urostomy One kidney since (9) Cellulitis: Code(s): L03.90 - Cellulitis, unspecified Status: Acute Assessment and Plan: Bilateral lower extremities with warmth, pain and redness Started doxycycline (10) Tachycardia: Code(s): R00.0 - Tachycardia, unspecified Status: Acute Assessment and Plan: Patient notes that his heart rate went into 120s 30s while at home with ambulation Started patient on low-dose metoprolol 6.25 Will closely monitor Highest heart rate as inpatient 136 possibly secondary to congestive heart failure Will adjust medication as needed Continue telemetry (11) Bacteremia: Code(s): R78.81 - Bacteremia Status: Acute Assessment and Plan: Gram negative bacilli from aerobic bottle only my be cross contamination Rocephin started Sensitivity pending WBC 17.1...12.1 (12) CKD (chronic kidney disease), stage IV: Code(s): N18.4 - Chronic kidney disease, stage 4 (severe) Status: Acute Assessment and Plan: Patient is followed by a resource recovery specialist BUN/CR 47/2.33, 53/2.65,65/2.71 worsening due to
[2021-09-20 13:47] LABS: Hematocrit 31.5 % (37.0-46.0); Hemoglobin 9.6 g/dL (12.4-15.3)
[2021-09-20 13:49] LABS: Occult Blood Positive (Negative)
[2021-09-20] MEDS: DOXYCYCLINE IV 100 MG in DEXTROSE 5% 100 ML IVPB ×2 (14:30→20:14)
[2021-09-20 18:10] LABS: Hematocrit 30.5 % (37.0-46.0); Hemoglobin 9.4 g/dL (12.4-15.3)
[2021-09-21] VITALS (17 sets, daily range): BP systolic 112–121; BP diastolic 48–80; PULSE 76–104; RESP 15–22; TEMP 36.4–36.6; O2SAT 96–100
--- NOTE | 2021-09-21 00:59 | PC.NURSE ---
Pt had called to notify this leader writer that his urostomy bag was leaking. The urostomy bag was changed with the pt needing only minimal assist. The pt was also cleansed with hygienic wipes in the areas that urine was present. The pt's gown was also changed along with the bed sheet and blanket. Call light placed within reach.
--- NOTE | 2021-09-21 04:26 | PC.NURSE ---
Pt's bedsheet and bed pad changed done after pt had a scant amount of black, loose fecal matter and leaked urine from his urostomy bag on said items. Pt is in pleasant mood and directed to notify the nurses station on when he was finished with his bm to which he verbalized understanding.
[2021-09-21 05:18] LABS: Hemoglobin 9.1 g/dL (12.4-15.3); Mean Corpuscular HGB Conc 30.3 g/dL (32.0-36.0); Mean Corpuscular Hemoglobin 29.4 pg (27.0-31.0); Mean Corpuscular Volume 96.8 fL (78.0-102.0); Mean Platelet Volume 9.8 fl (8.7-11.0); Platelet Count Result 218 K/mm3 (150-420); Red Cell Distribution Width 16.2 % (11.6-14.4); White Blood Count 8.8 K/mm3 (4.8-10.8)
[2021-09-21] MEDS: IPRATROPIUM 0.5 MG/ALBUTEROL SULFATE 2.5 MG AMPUL.NEB 3 ML INHALATION ×4 (05:26→23:45)
[2021-09-21 05:30] LABS: Anion Gap 10 mmol/L (8-16); Blood Urea Nitrogen 101 mg/dL (7-18); Calcium 8.5 mg/dL (8.5-10.1); Carbon Dioxide 25 mmol/L (21-32); Chloride 105 mmol/L (98-108); Estimated CRCL calculation 18 ml/min; Estimated Glomerular Filt Rate 18; Glucose 104 mg/dL (70-99); Osmolality Calculated 321 mOsm/kg (285-295); Potassium 4.9 mmol/L (3.5-5.1); Sodium 140 mmol/L (136-145)
--- NOTE | 2021-09-21 07:58 | P.PNIM_ITS ---
Progress Note: A&P Assessment and Plan (1) Congestive heart failure: Qualifiers: Heart failure chronicity: acute on chronic Heart failure type: systolic Qualified Code(s): I50.23 - Acute on chronic systolic (congestive) heart failure Code(s): I50.9 - Heart failure, unspecified Status: Acute Assessment and Plan: * [id number]>1199>1680> 1510>1376 * Continue Lasix 40 daily and strict I's and O's * Chest x-ray does not indicate pulmonary edema * Echo EF is 65% * I's and O's * Weight reviewed * 1 additional dosage of Lasix completed 09/19/2021 (2) H/O deep venous thrombosis: Code(s): Z86.718 - Personal history of other venous thrombosis and embolism Status: Acute Assessment and Plan: * Continue Eliquis * D-dimer within normal limit (3) Acute exacerbation of chronic obstructive airways disease: Code(s): J44.1 - Chronic obstructive pulmonary disease with (acute) exacerbation Status: Acute Assessment and Plan: * End-stage * Continue duo nebulizer along with Solu-Medrol, supplementary oxygen and home medication * Chest x-ray unremarkable * follow-up I Dr. Yohannes Vargas pullman conductor * Uses 2.5 L with activity sometimes at rest * IV Steroids stopped and placed on oral Steroid 09/21/2021 Discussed plan of care with Dr. Lisa changes made according to his recommendation (4) HTN (hypertension): Code(s): I10 - Essential (primary) hypertension Status: Acute Assessment and Plan: * Stable * Continue home medication * (5) COPD (chronic obstructive pulmonary disease): Qualifiers: COPD type: COPD with acute exacerbation Qualified Code(s): J44.1 - Chronic obstructive pulmonary disease with (acute) exacerbation Code(s): J44.9 - Chronic obstructive pulmonary disease, unspecified Status: Acute Assessment and Plan: * Follow-up I Dr. Yohannes Vargas pullman conductor * Uses 2.5 L with activity sometimes at rest * Continue DuoNeb nebulizer, supplementary oxygen with Solu-Medrol and home medication (6) Anemia: Code(s): D64.9 - Anemia, unspecified Status: Acute Assessment and Plan: * Chronic * Patient receives iron transfusions * H&H8.2/28.1>8.0/26.0 ....7.5/24.7 * 1 unit of blood given will recheck HH 4 hour post blood HGB recheck 9.6..9.3..9.1 bleeding noted in stool last night per nursing (7) Lung cancer: Code(s): C34.90 - Malignant neoplasm of unspecified part of unspecified bronchus or lung Status: Acute Assessment and Plan: * Patient sees oncologist, Dr. Gonzalez at [facility] * Dr. 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 * One kidney since (9) Cellulitis: Code(s): L03.90 - Cellulitis, unspecified Status: Acute Assessment and Plan: * Bilateral lower extremities with warmth, pain and redness * Started doxycycline (10) Tachycardia: Code(s): R00.0 - Tachycardia, unspecified Status: Acute Assessment and Plan: * Patient notes that his heart rate went into 120s 30s while at home with ambulation * Started patient on low-dose metoprolol 6.25 * Will closely monitor * Highest heart rate as inpatient 136 possibly secondary to congestive heart failure * Will adjust medication as needed * Continue telemetry * RESOLVINg Currently heart rate 76 (11) Bacter
--- NOTE | 2021-09-21 07:58 | PM.IMPN ---
Progress Note: A&P Assessment and Plan (1) Congestive heart failure: Qualifiers: Heart failure chronicity: acute on chronic Heart failure type: systolic Qualified Code(s): I50.23 - Acute on chronic systolic (congestive) heart failure Code(s): I50.9 - Heart failure, unspecified Status: Acute Assessment and Plan: [id number]>1199>1680> 1510>1376 Continue Lasix 40 daily and strict I's and O's Chest x-ray does not indicate pulmonary edema Echo EF is 65% I's and O's Weight reviewed 1 additional dosage of Lasix completed 09/19/2021 (2) H/O deep venous thrombosis: Code(s): Z86.718 - Personal history of other venous thrombosis and embolism Status: Acute Assessment and Plan: Continue Eliquis D-dimer within normal limit (3) Acute exacerbation of chronic obstructive airways disease: Code(s): J44.1 - Chronic obstructive pulmonary disease with (acute) exacerbation Status: Acute Assessment and Plan: End-stage Continue duo nebulizer along with Solu-Medrol, supplementary oxygen and home medication Chest x-ray unremarkable follow-up I Dr. Yohannes Vargas malted milk mixer Uses 2.5 L with activity sometimes at rest IV Steroids stopped and placed on oral Steroid 09/21/2021 Discussed plan of care with Dr. Lisa changes made according to his recommendation (4) HTN (hypertension): Code(s): I10 - Essential (primary) hypertension Status: Acute Assessment and Plan: Stable Continue home medication (5) COPD (chronic obstructive pulmonary disease): Qualifiers: COPD type: COPD with acute exacerbation Qualified Code(s): J44.1 - Chronic obstructive pulmonary disease with (acute) exacerbation Code(s): J44.9 - Chronic obstructive pulmonary disease, unspecified Status: Acute Assessment and Plan: Follow-up I Dr. Yohannes Vargas malted milk mixer Uses 2.5 L with activity sometimes at rest Continue DuoNeb nebulizer, supplementary oxygen with Solu-Medrol and home medication (6) Anemia: Code(s): D64.9 - Anemia, unspecified Status: Acute Assessment and Plan: Chronic Patient receives iron transfusions H&H8.2/28.1>8.0/26.0 ....7.5/24.7 1 unit of blood given will recheck HH 4 hour post blood HGB recheck 9.6..9.3..9.1 bleeding noted in stool last night per nursing (7) Lung cancer: Code(s): C34.90 - Malignant neoplasm of unspecified part of unspecified bronchus or lung Status: Acute Assessment and Plan: Patient sees oncologist, Dr. Gonzalez at [facility] Dr. 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 (9) Cellulitis: Code(s): L03.90 - Cellulitis, unspecified Status: Acute Assessment and Plan: Bilateral lower extremities with warmth, pain and redness Started doxycycline (10) Tachycardia: Code(s): R00.0 - Tachycardia, unspecified Status: Acute Assessment and Plan: Patient notes that his heart rate went into 120s 30s while at home with ambulation Started patient on low-dose metoprolol 6.25 Will closely monitor Highest heart rate as inpatient 136 possibly secondary to congestive heart failure Will adjust medication as needed Continue telemetry RESOLVINg Currently heart rate 76 (11) Bacteremia: Code(s): R78.81 - Bacteremia Status: Acute Assessment and Plan: Gram negative bacilli from aerobic bottle only my be cross contamination Rocephin started Sensitivity Klebsiella noted in aerobic bottle only changed from 1 gram to 2 grams of Rocephin WBC 17.1...12.1..8.8 resolved (12) CKD (chronic kidney disease), stage IV: Code(s): N18.4 - Chronic kidney disease, stage 4 (severe) Status: Acute Assessment and P
[2021-09-21 08:48] LABS: NT Pro B Type Natriuretic Pept 1376 pg/mL (0-450)
[2021-09-21] MEDS: PANTOPRAZOLE SODIUM IV 40 MG VIAL IV PUSH (08:57)
[2021-09-21] MEDS: FUROSEMIDE INJ 20 MG/2 ML VIAL 40 MG IV PUSH (08:58)
[2021-09-21] MEDS: lisinopriL 2.5 MG TABLET PO (08:59)
[2021-09-21] MEDS: DOCUSATE SODIUM 100 MG CAPSULE PO (08:59)
[2021-09-21] MEDS: guaiFENesin 12 HR 600 MG TABCR PO (08:59)
[2021-09-21] MEDS: CYANOCOBALAMIN 1,000 MCG TABLET 1000 MCG PO (08:59)
[2021-09-21] MEDS: ESCITALOPRAM OXALATE 10 MG TABLET PO (08:59)
[2021-09-21] MEDS: SACCHAROMYCES BOULARDII 250 MG CAPSULE PO (09:00)
[2021-09-21] MEDS: METOPROLOL TARTRATE 6.25 MG TABLET PO ×2 (09:00→21:30)
[2021-09-21] MEDS: predniSONE 20 MG TABLET PO (09:03)
[2021-09-21] MEDS: FERROUS SULFATE 324 MG TABLET PO (09:04)
[2021-09-21] MEDS: DOXYCYCLINE IV 100 MG in DEXTROSE 5% 100 ML IVPB ×2 (09:30→21:31)
--- NOTE | 2021-09-21 09:40 | PC.NURSE ---
Spoke with Zoey at [facility]. Patient still on transfer list, waiting on bed still.
[2021-09-22] VITALS (16 sets, daily range): BP systolic 116–128; BP diastolic 54–109; PULSE 70–93; RESP 10–20; TEMP 36.4–36.8; O2SAT 96–100
--- NOTE | 2021-09-22 02:13 | PC.NURSE ---
Alert, skin pink, respirations easy/unlabored. 8 beat run of nonsustained VTach noted on monitor. Patient asymptomatic. oRsa Francois RN informed.
[2021-09-22] MEDS: IPRATROPIUM 0.5 MG/ALBUTEROL SULFATE 2.5 MG AMPUL.NEB 3 ML INHALATION ×3 (05:33→18:11)
[2021-09-22 08:10] LABS: Hematocrit 29.2 % (37.0-46.0); Hemoglobin 8.9 g/dL (12.4-15.3); Mean Corpuscular HGB Conc 30.5 g/dL (32.0-36.0); Mean Corpuscular Hemoglobin 29.8 pg (27.0-31.0); Mean Corpuscular Volume 97.7 fL (78.0-102.0); Mean Platelet Volume 9.6 fl (8.7-11.0); Platelet Count Result 223 K/mm3 (150-420); Red Blood Count 2.99 M/mm3 (4.70-6.10); Red Cell Distribution Width 15.5 % (11.6-14.4); White Blood Count 8.4 K/mm3 (4.8-10.8)
[2021-09-22 08:29] LABS: Anion Gap 9 mmol/L (8-16); Blood Urea Nitrogen 107 mg/dL (7-18); Calcium 8.3 mg/dL (8.5-10.1); Carbon Dioxide 24 mmol/L (21-32); Chloride 107 mmol/L (98-108); Estimated CRCL calculation 19 ml/min; Estimated Glomerular Filt Rate 19; Glucose 102 mg/dL (70-99); Osmolality Calculated 323 mOsm/kg (285-295); Sodium 140 mmol/L (136-145)
[2021-09-22] MEDS: METOPROLOL TARTRATE 6.25 MG TABLET PO ×2 (09:42→20:54)
[2021-09-22] MEDS: lisinopriL 2.5 MG TABLET PO (09:42)
[2021-09-22] MEDS: SACCHAROMYCES BOULARDII 250 MG CAPSULE PO ×2 (09:42→17:09)
[2021-09-22] MEDS: FUROSEMIDE INJ 20 MG/2 ML VIAL 40 MG IV PUSH (09:43)
[2021-09-22] MEDS: CYANOCOBALAMIN 1,000 MCG TABLET 1000 MCG PO (09:43)
[2021-09-22] MEDS: PANTOPRAZOLE SODIUM IV 40 MG VIAL IV PUSH (09:43)
[2021-09-22] MEDS: FERROUS SULFATE 324 MG TABLET PO (09:43)
[2021-09-22] MEDS: ESCITALOPRAM OXALATE 10 MG TABLET PO (09:43)
[2021-09-22] MEDS: predniSONE 20 MG TABLET PO (09:43)
[2021-09-22] MEDS: guaiFENesin 12 HR 600 MG TABCR PO (09:43)
[2021-09-22] MEDS: DOXYCYCLINE IV 100 MG in DEXTROSE 5% 100 ML IVPB ×2 (09:55→20:53)
--- NOTE | 2021-09-22 10:50 | P.PNIM_ITS ---
Progress Note: A&P Assessment and Plan (1) Congestive heart failure: Qualifiers: Heart failure chronicity: acute on chronic Heart failure type: systolic Qualified Code(s): I50.23 - Acute on chronic systolic (congestive) heart failure Code(s): I50.9 - Heart failure, unspecified Status: Acute Assessment and Plan: * [id number]>1199>1680> 1510>1376 * Continue Lasix 40 daily and strict I's and O's * Chest x-ray does not indicate pulmonary edema * Echo EF is 65% * I's and O's * Weight reviewed * 1 additional dosage of Lasix completed 09/19/2021 (2) H/O deep venous thrombosis: Code(s): Z86.718 - Personal history of other venous thrombosis and embolism Status: Acute Assessment and Plan: * Continue Eliquis * D-dimer within normal limit (3) Acute exacerbation of chronic obstructive airways disease: Code(s): J44.1 - Chronic obstructive pulmonary disease with (acute) exacerbation Status: Acute Assessment and Plan: * End-stage * Continue duo nebulizer along with Solu-Medrol, supplementary oxygen and home medication * Chest x-ray unremarkable * follow-up I Dr. Yohannes Vargas senior benefits analyst * Uses 2.5 L with activity sometimes at rest * IV Steroids stopped and placed on oral Steroid 09/21/2021 Discussed plan of care with Dr. Lisa changes made according to his recommendation (4) HTN (hypertension): Code(s): I10 - Essential (primary) hypertension Status: Acute Assessment and Plan: * Stable * Continue home medication * (5) COPD (chronic obstructive pulmonary disease): Qualifiers: COPD type: COPD with acute exacerbation Qualified Code(s): J44.1 - Chronic obstructive pulmonary disease with (acute) exacerbation Code(s): J44.9 - Chronic obstructive pulmonary disease, unspecified Status: Acute Assessment and Plan: * Follow-up I Dr. Yohannes Vargas senior benefits analyst * Uses 2.5 L with activity sometimes at rest * Continue DuoNeb nebulizer, supplementary oxygen with Solu-Medrol and home medication * Awaiting Transfer to [facility] as I called and currently no bed available (6) Anemia: Code(s): D64.9 - Anemia, unspecified Status: Acute Assessment and Plan: * Chronic * Patient receives iron transfusions * H&H8.2/28.1>8.0/26.0 ....7.5/24.7 * 1 unit of blood given will recheck HH 4 hour post blood HGB recheck 9.6..9.3..9.1..8.9 bleeding noted in stool last night per nursing (7) Lung cancer: Code(s): C34.90 - Malignant neoplasm of unspecified part of unspecified bronchus or lung Status: Acute Assessment and Plan: * Patient sees oncologist, Dr. Gonzalez at [facility] * Dr. 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
--- NOTE | 2021-09-22 10:50 | PM.IMPN ---
Progress Note: A&P Assessment and Plan (1) Congestive heart failure: Qualifiers: Heart failure chronicity: acute on chronic Heart failure type: systolic Qualified Code(s): I50.23 - Acute on chronic systolic (congestive) heart failure Code(s): I50.9 - Heart failure, unspecified Status: Acute Assessment and Plan: [id number]>907>1199>1680> 1510>1376 Continue Lasix 40 daily and strict I's and O's Chest x-ray does not indicate pulmonary edema Echo EF is 65% I's and O's Weight reviewed 1 additional dosage of Lasix completed 09/19/2021 (2) H/O deep venous thrombosis: Code(s): Z86.718 - Personal history of other venous thrombosis and embolism Status: Acute Assessment and Plan: Continue Eliquis D-dimer within normal limit (3) Acute exacerbation of chronic obstructive airways disease: Code(s): J44.1 - Chronic obstructive pulmonary disease with (acute) exacerbation Status: Acute Assessment and Plan: End-stage Continue duo nebulizer along with Solu-Medrol, supplementary oxygen and home medication Chest x-ray unremarkable follow-up I Dr. Yohannes Vargas composite laminator Uses 2.5 L with activity sometimes at rest IV Steroids stopped and placed on oral Steroid 09/21/2021 Discussed plan of care with Dr. Lisa changes made according to his recommendation (4) HTN (hypertension): Code(s): I10 - Essential (primary) hypertension Status: Acute Assessment and Plan: Stable Continue home medication (5) COPD (chronic obstructive pulmonary disease): Qualifiers: COPD type: COPD with acute exacerbation Qualified Code(s): J44.1 - Chronic obstructive pulmonary disease with (acute) exacerbation Code(s): J44.9 - Chronic obstructive pulmonary disease, unspecified Status: Acute Assessment and Plan: Follow-up I Dr. Yohannes Vargas composite laminator Uses 2.5 L with activity sometimes at rest Continue DuoNeb nebulizer, supplementary oxygen with Solu-Medrol and home medication Awaiting Transfer to [facility] as I called and currently no bed available (6) Anemia: Code(s): D64.9 - Anemia, unspecified Status: Acute Assessment and Plan: Chronic Patient receives iron transfusions H&H8.2/28.1>8.0/26.0 ....7.5/24.7 1 unit of blood given will recheck HH 4 hour post blood HGB recheck 9.6..9.3..9.1..8.9 bleeding noted in stool last night per nursing (7) Lung cancer: Code(s): C34.90 - Malignant neoplasm of unspecified part of unspecified bronchus or lung Status: Acute Assessment and Plan: Patient sees oncologist, Dr. Gonzalez at [facility] Dr. 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 (9) Cellulitis: Code(s): L03.90 - Cellulitis, unspecified Status: Acute Assessment and Plan: Bilateral lower extremities with warmth, pain and redness Started doxycycline (10) Tachycardia: Code(s): R00.0 - Tachycardia, unspecified Status: Acute Assessment and Plan: Patient notes that his heart rate went into 120s 30s while at home with ambulation Started patient on low-dose metoprolol 6.25 Will closely monitor Highest heart rate as inpatient 136 possibly secondary to congestive heart failure Will adjust medication as needed Continue telemetry RESOLVINg Currently heart rate 93 (11) Bacteremia: Code(s): R78.81 - Bacteremia Status: Acute Assessment and Plan: Gram negative bacilli from aerobic bottle only my be cross contamination Rocephin started Sensitivity Klebsiella noted in aerobic bottle only changed from 1 gram to 2 grams of Rocephin WBC 17.1...12.1..8.8
[2021-09-23] VITALS (10 sets, daily range): BP systolic 89–145; BP diastolic 51–71; PULSE 72–94; RESP 14–20; TEMP 36.5–36.7; O2SAT 96–98
[2021-09-23] MEDS: IPRATROPIUM 0.5 MG/ALBUTEROL SULFATE 2.5 MG AMPUL.NEB 3 ML INHALATION ×3 (00:17→13:20)
[2021-09-23 05:34] LABS: Hematocrit 26.5 % (37.0-46.0); Hemoglobin 8.1 g/dL (12.4-15.3); Mean Corpuscular HGB Conc 30.6 g/dL (32.0-36.0); Mean Corpuscular Hemoglobin 29.7 pg (27.0-31.0); Mean Corpuscular Volume 97.1 fL (78.0-102.0); Mean Platelet Volume 9.6 fl (8.7-11.0); Platelet Count Result 200 K/mm3 (150-420); Red Blood Count 2.73 M/mm3 (4.70-6.10); Red Cell Distribution Width 15.5 % (11.6-14.4); White Blood Count 8.8 K/mm3 (4.8-10.8)
[2021-09-23 05:40] LABS: Anion Gap 8 mmol/L (8-16); Blood Urea Nitrogen 114 mg/dL (7-18); Calcium 7.8 mg/dL (8.5-10.1); Carbon Dioxide 26 mmol/L (21-32); Chloride 108 mmol/L (98-108); Estimated CRCL calculation 19 ml/min; Estimated Glomerular Filt Rate 19; Glucose 105 mg/dL (70-99); Osmolality Calculated 330 mOsm/kg (285-295); Potassium 5.2 mmol/L (3.5-5.1); Sodium 142 mmol/L (136-145)
--- NOTE | 2021-09-23 08:45 | P.PNIM_ITS ---
Progress Note: A&P Assessment and Plan (1) Congestive heart failure: Qualifiers: Heart failure chronicity: acute on chronic Heart failure type: systolic Qualified Code(s): I50.23 - Acute on chronic systolic (congestive) heart failure Code(s): I50.9 - Heart failure, unspecified Status: Acute Assessment and Plan: * [id number]>1199>1680> 1510>1376 * Continue Lasix 40 daily and strict I's and O's * Chest x-ray does not indicate pulmonary edema * Echo EF is 65% * I's and O's * Weight reviewed * 1 additional dosage of Lasix completed 09/19/2021 (2) H/O deep venous thrombosis: Code(s): Z86.718 - Personal history of other venous thrombosis and embolism Status: Acute Assessment and Plan: * Continue Eliquis * D-dimer within normal limit (3) Acute exacerbation of chronic obstructive airways disease: Code(s): J44.1 - Chronic obstructive pulmonary disease with (acute) exacerbation Status: Acute Assessment and Plan: * End-stage * Continue duo nebulizer along with Solu-Medrol, supplementary oxygen and home medication * Chest x-ray unremarkable * follow-up I Dr. Yohannes Vargas spooling supervisor * Uses 2.5 L with activity sometimes at rest * IV Steroids stopped and placed on oral Steroid 09/21/2021 Discussed plan of care with Dr. Lisa changes made according to his recommendation (4) HTN (hypertension): Code(s): I10 - Essential (primary) hypertension Status: Acute Assessment and Plan: * Stable * Continue home medication * (5) COPD (chronic obstructive pulmonary disease): Qualifiers: COPD type: COPD with acute exacerbation Qualified Code(s): J44.1 - Chronic obstructive pulmonary disease with (acute) exacerbation Code(s): J44.9 - Chronic obstructive pulmonary disease, unspecified Status: Acute Assessment and Plan: * Follow-up I Dr. Yohannes Vargas spooling supervisor * Uses 2.5 L with activity sometimes at rest * Continue DuoNeb nebulizer, supplementary oxygen with Solu-Medrol and home medication * Awaiting Transfer to [facility] as I called and currently no bed available (6) Anemia: Code(s): D64.9 - Anemia, unspecified Status: Acute Assessment and Plan: * Chronic * Patient receives iron transfusions * H&H8.2/28.1>8.0/26.0 ....7.5/24.7 * 1 unit of blood given will recheck HH 4 hour post blood HGB recheck 9.6..9.3..9.1..8.9..8.1 bleeding noted in stool last night per nursing Obvious blood noted in toilet with no stool we will recheck patient's hemoglobin more than likely will need to have blood in the a.m. (7) Lung cancer: Code(s): C34.90 - Malignant neoplasm of unspecified part of unspecified bronchus or lung Status: Acute Assessment and Plan: * Patient sees oncologist, Dr. Gonzalez at [facility] * Dr. 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
--- NOTE | 2021-09-23 08:45 | PM.IMPN ---
Progress Note: A&P Assessment and Plan (1) Congestive heart failure: Qualifiers: Heart failure chronicity: acute on chronic Heart failure type: systolic Qualified Code(s): I50.23 - Acute on chronic systolic (congestive) heart failure Code(s): I50.9 - Heart failure, unspecified Status: Acute Assessment and Plan: [id number]>1199>1680> 1510>1376 Continue Lasix 40 daily and strict I's and O's Chest x-ray does not indicate pulmonary edema Echo EF is 65% I's and O's Weight reviewed 1 additional dosage of Lasix completed 09/19/2021 (2) H/O deep venous thrombosis: Code(s): Z86.718 - Personal history of other venous thrombosis and embolism Status: Acute Assessment and Plan: Continue Eliquis D-dimer within normal limit (3) Acute exacerbation of chronic obstructive airways disease: Code(s): J44.1 - Chronic obstructive pulmonary disease with (acute) exacerbation Status: Acute Assessment and Plan: End-stage Continue duo nebulizer along with Solu-Medrol, supplementary oxygen and home medication Chest x-ray unremarkable follow-up I Dr. Yohannes Vargas real estate officer Uses 2.5 L with activity sometimes at rest IV Steroids stopped and placed on oral Steroid 09/21/2021 Discussed plan of care with Dr. Lisa changes made according to his recommendation (4) HTN (hypertension): Code(s): I10 - Essential (primary) hypertension Status: Acute Assessment and Plan: Stable Continue home medication (5) COPD (chronic obstructive pulmonary disease): Qualifiers: COPD type: COPD with acute exacerbation Qualified Code(s): J44.1 - Chronic obstructive pulmonary disease with (acute) exacerbation Code(s): J44.9 - Chronic obstructive pulmonary disease, unspecified Status: Acute Assessment and Plan: Follow-up I Dr. Yohannes Vargas real estate officer Uses 2.5 L with activity sometimes at rest Continue DuoNeb nebulizer, supplementary oxygen with Solu-Medrol and home medication Awaiting Transfer to [facility] as I called and currently no bed available (6) Anemia: Code(s): D64.9 - Anemia, unspecified Status: Acute Assessment and Plan: Chronic Patient receives iron transfusions H&H8.2/28.1>8.0/26.0 ....7.5/24.7 1 unit of blood given will recheck HH 4 hour post blood HGB recheck 9.6..9.3..9.1..8.9..8.1 bleeding noted in stool last night per nursing Obvious blood noted in toilet with no stool we will recheck patient's hemoglobin more than likely will need to have blood in the a.m. (7) Lung cancer: Code(s): C34.90 - Malignant neoplasm of unspecified part of unspecified bronchus or lung Status: Acute Assessment and Plan: Patient sees oncologist, Dr. Gonzalez at [facility] Dr. 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 (9) Cellulitis: Code(s): L03.90 - Cellulitis, unspecified Status: Acute Assessment and Plan: Bilateral lower extremities with warmth, pain and redness Started doxycycline (10) Tachycardia: Code(s): R00.0 - Tachycardia, unspecified Status: Acute Assessment and Plan: Patient notes that his heart rate went into 120s 30s while at home with ambulation Started patient on low-dose metoprolol 6.25 Will closely monitor Highest heart rate as inpatient 136 possibly secondary to congestive heart failure Will adjust medication as needed Continue telemetry RESOLVINg Currently heart rate 74 (11) Bacteremia: Code(s): R78.81 - Bacteremia Status: Acute Assessment and Plan: Gram negative bacilli from aerobic bottle only my be cross contamination
[2021-09-23] MEDS: SACCHAROMYCES BOULARDII 250 MG CAPSULE PO (09:32)
[2021-09-23] MEDS: FERROUS SULFATE 324 MG TABLET PO (09:33)
[2021-09-23] MEDS: predniSONE 20 MG TABLET PO (09:33)
[2021-09-23] MEDS: CYANOCOBALAMIN 1,000 MCG TABLET 1000 MCG PO (09:33)
[2021-09-23] MEDS: PANTOPRAZOLE SODIUM IV 40 MG VIAL IV PUSH (09:33)
[2021-09-23] MEDS: FUROSEMIDE INJ 20 MG/2 ML VIAL 40 MG IV PUSH (09:33)
[2021-09-23] MEDS: ESCITALOPRAM OXALATE 10 MG TABLET PO (09:33)
[2021-09-23] MEDS: guaiFENesin 12 HR 600 MG TABCR PO (09:33)
[2021-09-23] MEDS: DOXYCYCLINE IV 100 MG in DEXTROSE 5% 100 ML IVPB (09:34)
--- NOTE | 2021-09-23 15:45 | PC.NURSE ---
[facility] called and update given. asked for ian to call their hospitalist with updates. they may have bed at this time. ian aware and numbers given. face sheet faxed to [facility].
--- NOTE | 2021-09-23 17:00 | PC.NURSE ---
Report called to Humphrey at [facility], requested patient have a covid swab prior to being sent. PCR collected.
--- NOTE | 2021-09-23 17:30 | PC.NURSE ---
PCR covid test negative. Humphrey at [facility] notified. EMS called for transport. [facility] has no transport rig available. [facility] called for transfer.
[2021-09-23 17:39] LABS: SARS-CoV-2 Ag Negative (Negative)
--- NOTE | 2021-09-23 18:15 | PC.NURSE ---
[facility] arrived to transport patient. Patient assisted per pivot transfer from bed to stretcher. O2 @ 3L per nasal cannula. Patient alert and cooperative. Off floor at 1820. Son Bradley notified.
--- NOTE | 2021-09-23 23:57 | P.PN_ITS ---
Progress Note: A&P Assessment and Plan (1) Congestive heart failure: Qualifiers: Heart failure chronicity: acute on chronic Heart failure type: systolic Qualified Code(s): I50.23 - Acute on chronic systolic (congestive) heart failure Code(s): I50.9 - Heart failure, unspecified Status: Acute Assessment and Plan: * [id number] * Continue Lasix 40 daily and strict I's and O's * Chest x-ray does not indicate pulmonary edema * Echo EF is 65% * I's and O's * Weight reviewed * 1 additional dosage of Lasix completed 09/19/2021 (2) H/O deep venous thrombosis: Code(s): Z86.718 - Personal history of other venous thrombosis and embolism Status: Acute Assessment and Plan: * Continue Eliquis * D-dimer within normal limit (3) Acute exacerbation of chronic obstructive airways disease: Code(s): J44.1 - Chronic obstructive pulmonary disease with (acute) exacerbation Status: Acute Assessment and Plan: * End-stage * Continue duo nebulizer along with Solu-Medrol, supplementary oxygen and home medication * Chest x-ray unremarkable * follow-up I Dr. Yohannes Vargas manager employee benefits * Uses 2.5 L with activity sometimes at rest * IV Steroids stopped and placed on oral Steroid 09/21/2021 Discussed plan of care with Dr. Lisa changes made according to his recommendation (4) HTN (hypertension): Code(s): I10 - Essential (primary) hypertension Status: Acute Assessment and Plan: * Stable * Continue home medication * (5) COPD (chronic obstructive pulmonary disease): Qualifiers: COPD type: COPD with acute exacerbation Qualified Code(s): J44.1 - Chronic obstructive pulmonary disease with (acute) exacerbation Code(s): J44.9 - Chronic obstructive pulmonary disease, unspecified Status: Acute Assessment and Plan: * Follow-up I Dr. Yohannes Vargas manager employee benefits * Uses 2.5 L with activity sometimes at rest * Continue DuoNeb nebulizer, supplementary oxygen with Solu-Medrol and home medication * Awaiting Transfer to [facility] as I called and currently no bed available (6) Anemia: Code(s): D64.9 - Anemia, unspecified Status: Acute Assessment and Plan: * Chronic * Patient receives iron transfusions * H&H8.2/28.1>8.0/26.0 ....7.5/24.7 * 1 unit of blood transfusing bleeding noted in stool last night per nursing (7) Lung cancer: Code(s): C34.90 - Malignant neoplasm of unspecified part of unspecified bronchus or lung Status: Acute Assessment and Plan: * Patient sees oncologist, Dr. Gonzalez at [facility] * Dr. 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
--- NOTE | 2021-09-23 23:57 | WPDPN ---
Progress Note: A&P Assessment and Plan (1) Congestive heart failure: Qualifiers: Heart failure chronicity: acute on chronic Heart failure type: systolic Qualified Code(s): I50.23 - Acute on chronic systolic (congestive) heart failure Code(s): I50.9 - Heart failure, unspecified Status: Acute Assessment and Plan: [id number] Continue Lasix 40 daily and strict I's and O's Chest x-ray does not indicate pulmonary edema Echo EF is 65% I's and O's Weight reviewed 1 additional dosage of Lasix completed 09/19/2021 (2) H/O deep venous thrombosis: Code(s): Z86.718 - Personal history of other venous thrombosis and embolism Status: Acute Assessment and Plan: Continue Eliquis D-dimer within normal limit (3) Acute exacerbation of chronic obstructive airways disease: Code(s): J44.1 - Chronic obstructive pulmonary disease with (acute) exacerbation Status: Acute Assessment and Plan: End-stage Continue duo nebulizer along with Solu-Medrol, supplementary oxygen and home medication Chest x-ray unremarkable follow-up I Dr. Yohannes Vargas material damage adjuster Uses 2.5 L with activity sometimes at rest IV Steroids stopped and placed on oral Steroid 09/21/2021 Discussed plan of care with Dr. Lisa changes made according to his recommendation (4) HTN (hypertension): Code(s): I10 - Essential (primary) hypertension Status: Acute Assessment and Plan: Stable Continue home medication (5) COPD (chronic obstructive pulmonary disease): Qualifiers: COPD type: COPD with acute exacerbation Qualified Code(s): J44.1 - Chronic obstructive pulmonary disease with (acute) exacerbation Code(s): J44.9 - Chronic obstructive pulmonary disease, unspecified Status: Acute Assessment and Plan: Follow-up I Dr. Yohannes Vargas material damage adjuster Uses 2.5 L with activity sometimes at rest Continue DuoNeb nebulizer, supplementary oxygen with Solu-Medrol and home medication Awaiting Transfer to [facility] as I called and currently no bed available (6) Anemia: Code(s): D64.9 - Anemia, unspecified Status: Acute Assessment and Plan: Chronic Patient receives iron transfusions H&H8.2/28.1>8.0/26.0 ....7.5/24.7 1 unit of blood transfusing bleeding noted in stool last night per nursing (7) Lung cancer: Code(s): C34.90 - Malignant neoplasm of unspecified part of unspecified bronchus or lung Status: Acute Assessment and Plan: Patient sees oncologist, Dr. Gonzalez at [facility] Dr. 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 (9) Cellulitis: Code(s): L03.90 - Cellulitis, unspecified Status: Acute Assessment and Plan: Bilateral lower extremities with warmth, pain and redness Started doxycycline (10) Tachycardia: Code(s): R00.0 - Tachycardia, unspecified Status: Acute Assessment and Plan: Patient notes that his heart rate went into 120s 30s while at home with ambulation Started patient on low-dose metoprolol 6.25 Will closely monitor Highest heart rate as inpatient 136 possibly secondary to congestive heart failure Will adjust medication as needed Continue telemetry (11) Bacteremia: Code(s): R78.81 - Bacteremia Status: Acute Assessment and Plan: Gram negative bacilli from aerobic bottle only my be cross contamination Rocephin started Sensitivity Klebsiella noted in aerobic bottle only changed from 1 gram to 2 grams of Rocephin WBC 17.1...12.1..8.8 resolved (12) CKD (chronic kidney disease), stage IV: Code(s): N18.4 - Chronic kidney disease,
--- NOTE | 2021-09-23 23:59 | PM.TDS ---
Transfer Discharge Sum: Prov Provider Date of admission: 09/18/21 10:13 Primary care physician: Nicola Oliva MD Admitting clinician: Saurabh Alston MD DS: Admitting Diagnosis Discharge Date 09/23/21 Admitting Diagnosis CoPD exacerbation , Renal failure DS: Discharge Diagnosis Discharge Diagnosis (1) Congestive heart failure: Qualifiers: Heart failure chronicity: acute on chronic Heart failure type: systolic Qualified Code(s): I50.23 - Acute on chronic systolic (congestive) heart failure Code(s): I50.9 - Heart failure, unspecified Status: Acute Assessment and Plan: [id number] Continue Lasix 40 daily and strict I's and O's Chest x-ray does not indicate pulmonary edema Echo EF is 65% I's and O's Weight reviewed 1 additional dosage of Lasix completed 09/19/2021 (2) H/O deep venous thrombosis: Code(s): Z86.718 - Personal history of other venous thrombosis and embolism Status: Acute Assessment and Plan: Continue Eliquis D-dimer within normal limit (3) Acute exacerbation of chronic obstructive airways disease: Code(s): J44.1 - Chronic obstructive pulmonary disease with (acute) exacerbation Status: Acute Assessment and Plan: End-stage Continue duo nebulizer along with Solu-Medrol, supplementary oxygen and home medication Chest x-ray unremarkable follow-up I Dr. Yohannes Vargas fur blower operator Uses 2.5 L with activity sometimes at rest IV Steroids stopped and placed on oral Steroid 09/21/2021 Discussed plan of care with Dr. Lisa changes made according to his recommendation 09/23/[address] Benitez at [facility] in [place] [facility] Gloria and by nephrology. (4) HTN (hypertension): Code(s): I10 - Essential (primary) hypertension Status: Acute Assessment and Plan: Stable Continue home medication (5) COPD (chronic obstructive pulmonary disease): Qualifiers: COPD type: COPD with acute exacerbation Qualified Code(s): J44.1 - Chronic obstructive pulmonary disease with (acute) exacerbation Code(s): J44.9 - Chronic obstructive pulmonary disease, unspecified Status: Acute Assessment and Plan: Follow-up I Dr. Yohannes Vargas fur blower operator Uses 2.5 L with activity sometimes at rest Continue DuoNeb nebulizer, supplementary oxygen with Solu-Medrol and home medication Awaiting Transfer to [facility] as I called and currently no bed available (6) Anemia: Code(s): D64.9 - Anemia, unspecified Status: Acute Assessment and Plan: Chronic Patient receives iron transfusions H&H8.2/28.1>8.0/26.0 ....7.5/24.7 1 unit of blood transfusing bleeding noted in stool last night per nursing (7) Lung cancer: Code(s): C34.90 - Malignant neoplasm of unspecified part of unspecified bronchus or lung Status: Acute Assessment and Plan: Patient sees oncologist, Dr. Gonzalez at [facility] Dr. 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
== END 2021-09-23 18:20 | disposition short-term general hospital (02) | DRG 291 ==
LOC: CHSED 15:33 → CHS2ND 18:39
PROVIDERS: Nurse Practitioner; Nurse Practitioner Family; Admitting Provider Emergency Medicine; Emergency Provider Emergency Medicine; PCP Internal Medicine; Visit Provider Emergency Medicine
DX: I13.0 Hypertensive heart and chronic kidney disease with heart failure and stage 1 through stage 4 chronic kidney disease, or unspecified chronic kidney disease (principal); I50.23 Acute on chronic systolic (congestive) heart failure; J44.1 Chronic obstructive pulmonary disease with (acute) exacerbation; N17.9 Acute kidney failure, unspecified; K92.2 Gastrointestinal hemorrhage, unspecified; C34.90 Malignant neoplasm of unspecified part of unspecified bronchus or lung; J96.10 Chronic respiratory failure, unspecified whether with hypoxia or hypercapnia; N18.4 Chronic kidney disease, stage 4 (severe); L03.116 Cellulitis of left lower limb; L03.115 Cellulitis of right lower limb; E87.5 Hyperkalemia; D64.9 Anemia, unspecified; C67.9 Malignant neoplasm of bladder, unspecified; Z86.718 Personal history of other venous thrombosis and embolism; Z79.01 Long term (current) use of anticoagulants; Z93.3 Colostomy status; Z93.6 Other artificial openings of urinary tract status
CPT/HCPCS: 36415; 36430; 36600; 71045; 80048; 80053; 82272; 82805; 83605; 83735; 83880; 84484; 85014; 85018; 85025; 85027; 85380; 86850; 86900; 86901; 86920; 87040; 87147; 87186; 87426; 93005; 93306; 94640; 96365; 96366; 96367; 96375; 96376; 99285; A9270; C9113; C9803; G0378; J0696; J1650; J1940; J2930; J7050; J7512; P9016